=== PATIENT | male | born 1960 | race Two or more races ===

== ENCOUNTER 2024-03-01 13:10 | Emergency (ER) | payer MEDICAID, SELFPAY ==
[2024-03-01 13:18] VITALS: PULSE 88; O2SAT 96
--- NOTE | 2024-03-01 13:18 | XR_ITS ---
Examination: CT brain head without contrast. 2-D sagittal coronal reconstructions Date and time of exam:March 01, 2024 1331 hours INDICATIONS: Malaise and fatigue today CTDI: vol (mGy):50.7 DLP: (mGycm):1105 Technique: Multiple CT axial sections of the brain have been obtained, 5 mm slice thickness. Contrast has not been administered. 2-D sagittal, coronal reconstructions have been obtained Low dose protocols were performed. One or more of the following dose reduction techniques were used; automated exposure control, adjustment of the mA and/or KV according to patient size, use of iterative reconstruction technique. Findings: No significant ventricular enlargement. Prominent right maxillary sinusitis Intra-axial or extra-axial hemorrhage density is not seen. No mass effect or midline shift Basal cisterns are not remarkable. Fourth ventricle is midline. Cranial vault intact. Impression: Negative for acute hemorrhage, mass effect or midline shift
--- NOTE | 2024-03-01 13:18 | XR_ITS ---
Examination: AP chest single view Technique one AP portable upright chest single view Exam date and time: March 01, 2024 1349 hours INDICATIONS: Shortness of breath today. FINDINGS: Mild elevation right hemidiaphragm No significant cardiac enlargement No pneumonia or pulmonary edema Moderate osteopenia IMPRESSION: No pneumonia or pulmonary edema
[2024-03-01 13:21] VITALS: BP 139/74; PULSE 82; RESP 16; TEMP 36.6; O2SAT 98
--- NOTE | 2024-03-01 13:22 | EDNOTE_ITS ---
ED General RME/HPI General Chief complaint: General Adult/Misc Complain Stated complaint: WEAKNESS Time Seen by Provider: 03/01/24 13:16 Arrival date/time: 03/01/24 13:10 RME / HPI RME / HPI narrative: This section includes all my notes and documentations, including HPI, PE, MDM, Procedure Notes, and PLAN. Carlos Alberto Wray MD HPI: 63 year old male with history of schizophrenia presents to the ED [facility] from [facility] for evaluation of generalized weakness beginning 3 days ago. Per medics, on scene patients vital signs were stable, 144/76, HR 80's, saturating 96% on room air, and prehospital BS 118. Medics report the patient was able to walk to [facility] without difficulty or assistance. No headache or dizziness. No speech or visual impairment. No loss of power in the arms or legs. No chest pain or shortness of breath. No fever or chills. No other complaints reported. ROS: Respiratory: negative except as documented in HPI. Gastrointestinal: negative except as documented in HPI. Genitourinary: negative except as documented in HPI. Musculoskeletal: negative except as documented in HPI. Skin: negative except as documented in HPI. Neurological: negative except as documented in HPI. Physical Exam: General: Alert and oriented. No acute distress. Eyes: Conjunctivae and lids clear. EOMI. PERRL. ENT: No nasal congestion. Pharynx normal. Tympanic membrane normal bilaterally. Neck: Supple. No carotid bruit. No JVD. Heart: RRR. Lungs: No respiratory distress. Good air movement. No rhonchi, wheezing, rales. Abdomen: Soft and nontender. Normal bowel sounds. No distension. No rebound or guarding. Back: No CVA tenderness. Legs: No clubbing, cyanosis, edema. Skin: Warm and dry. Neuro: Alert and oriented X 3. Cranial Nerves II-XII grossly intact. No peripheral motor deficits. Musculoskeletal: All major joints and bones are not tender with no limited ROM. I reviewed EMS notes. I reviewed all diagnostic test results. My interpretation of the EKG is sinus rhythm with nonspecific ST-T changes. My interpretation of the chest x-ray is no acute findings. My review of the head CT report is no acute findings. Blood tests and urine tests remarkable for TSH 6.74. At this point, diagnoses include hypothyroidism. Prescribed Synthroid and recommended more outpatient workup. Discharge instructions from Dr. Wray: 1. After extensive evaluation, there is no life-threatening condition.? Such as stroke or heart attack or pneumothorax (collapsed lung). 2. Your thyroid gland isn't working well and this explains your generalized weakness. 3. Take Synthroid as prescribed and this will increase your energy level. 4. See a private doctor on 03/03/2024. Ask to review all test results and official radiology reports, to make sure you receive all necessary follow-ups and monitoring. To make sure there is no serious underlying heart condition, ask to help you get more tests for your heart that cannot be done here in the ER.? Such as Holter Monitor (cardiac monitoring at home from a day to even a month), heart stress test (on treadmill or with medication), echocardiogram (imaging of your heart structures), heart catherization (checking for blockages in your heart arteries), and a referral to see a Portainer Operator. 5. Seek immediate medical care with worsening or with any concerns.?? Based on my best medical judgment, made decision no further evaluation or treatment indicated at this time. Patient understands and agrees to the discharge instructions customized and printed, see below. Carlos Alberto Wray MD Related Data Home Medications ?Medication ?Instructions ?Recorded ?Confirmed benztropine 1 mg tablet 1 mg PO BID 01/14/19 11/30/21 divalproex 500 mg tablet,extended 1,000 mg PO QDAY 01/14/19 12/05/21 release 24 hr lithium carbonate 300 mg capsule 300 mg PO QAM 01/14/19 11/30/21 lithium carbonate 300 mg capsule 600 mg PO HS 01/14/19 11/30/21 risperidone 4 mg tablet 8 mg PO HS 01/14/19 11/30/21 propranolol 60 mg capsule,24 40 mg PO QDAY 11/30/21 11/30/21 hr,extended release cholecalciferol (vitamin D3) 50 1 cap PO QDAY 12/05/21 12/05/21 mcg (2,000 unit) capsule metformin 500 mg tablet 1 tab PO QID 12/05/21 12/05/21 olanzapine 15 mg tablet 1 tab PO QDAY 12/05/21 12/05/21 Previous Rx's ?Medication ?Instructions ?Recorded benztropine 1 mg tablet 1 mg PO BID #60 tabs 12/05/21 divalproex 500 mg tablet,delayed 500 mg PO BID #60 tabs 12/05/21 release lithium carbonate 300 mg capsule 300 mg PO QAM #30 caps 12/05/21 lithium carbonate 300 mg tablet 600 mg (2 x 300 mg) PO .QHS #60 12/05/21 tabs olanzapine 20 mg tablet 20 mg PO .QHS #30 tabs 12/05/21 propranolol 40 mg tablet 40 mg PO QAM #30 tabs 12/05/21 risperidone 4 mg tablet 8 mg (2 x 4 mg) PO .QHS #60 tabs 12/05/21 levothyroxine 50 mcg tablet 50 mcg PO QDAY #30 tabs 03/01/24 (Synthroid) Allergies Allergy/AdvReac Type Severity Reaction Status Date / Time No Known Allergies Allergy Verified 01/14/19 10:32 Review of Systems Review of Systems Systems Reviewed: All systems reviewed, normal except as documented Past Medical History Past Medical History CARDIAC: Positive Hypertension; Negative Congestive Heart Failure RESPIRATORY: Negative Chronic Obstructive Pulmonary Disease (COPD) GENITOURINARY: Negative Renal Disease ENDOCRINE: Positive Diabetes Mellitus Type 2; Negative Diabetes Mellitus Type 1 PSYCHO/SOCIAL: Positive Schizophrenia Social History SMOKING STATUS: Never smoker ED Exam Narrative Physical exam: As noted in HPI Course Quality Measures none Orders Category Date Time Status Bedside COVID-19 Antigen Test NOW Care 03/01/24 13:18 Completed Bedside Influenza A&B Antigen Test NOW Care 03/01/24 13:18 Completed Saline [Insert IV] NOW Care 03/01/24 13:18 Completed Straight [In and Out Catheter] X1 Care 03/01/24 13:[address] head/brain wo con Stat Exams 03/01/24 13:18 Completed XR chest 1V portable Stat Exams 03/01/24 13:18 Completed BNP [B-Type Natriuretic Peptide] Stat Lab 03/01/24 13:43 Completed CBC Stat Lab 03/01/24 13:43 Completed CMP [Comprehensive Metabolic Panel] Stat Lab 03/01/24 13:43 Completed Magnesium Stat Lab 03/01/24 13:43 Completed TSH [Thyroid Stimulating Hormone] Stat Lab 03/01/24 13:43 Completed Troponin I Stat Lab 03/01/24 13:43 Completed UA [Urinalysis] Stat Lab 03/01/24 16:24 Completed Reevaluation(s) Reevaluation #1: Patient remains clinically stable throughout the emergency department visit. We reviewed all the results, analysis, and treatment plans. Patient is amenable to discharge. Strict return precautions were outlined. Patient was discharged in stable condition. Time: 16:00 Vital Signs Vital signs: Vital Signs Temperature 97.8 F 03/01/24 13:21 Pulse Rate 82 03/01/24 13:21 Respiratory Rate 16 03/01/24 13:21 Blood Pressure 139/74 H 03/01/24 13:21 Pulse Oximetry (%) 98 03/01/24 13:21 Oxygen Delivery Method Room Air 03/01/24 13:21 Pulse ox is 98% on room air which is adequate. [facility] Patient data External records reviewed:: [facility] previous records (I reviewed ED visit on 12/21/2023) and EMS form Clinical information provided by:: patient and EMS Social determinants that could affect healthcare access:: housing (Resides at [facility] ) Patient has the following chronic illnesses:: Schizophrenia How is presenting disease/condition affected by chronic disease/condition?: u neffected by Evaluation data The following diagnostics were reviewed and interpreted by me:: lab results and radiology exam(s) Lab and/or radiology exams considered but not ordered:: None Interpretation Summary: Ordering Physician: Carlos Alberto Wray MD Date of Service: 03/01/24 Procedure(s): XR chest 1V portable Accession Number(s): [id number] cc: Carlos Alberto Wray MD; Hamzah Dyson MD~ Examination: AP chest single view Technique one AP portable upright chest single view Exam date and time: March 01, 2024 1349 hours INDICATIONS: Shortness of breath today. FINDINGS: Mild elevation right hemidiaphragm No significant cardiac enlargement No pneumonia or pulmonary edema Moderate osteopenia IMPRESSION: No pneumonia or pulmonary edema Dictated By: Hamzah Dyson MD Signed By: <Electronically signed by Hamzah Dyson MD in OV> 03/01/24 1512 = Ordering Physician: Carlos Alberto Wray MD Date of Service: 03/01/24 Procedure(s): CT head/brain wo con Accession Number(s): [id number] cc: Carlos Alberto Wray MD; Hamzah Dyson MD~ Examination: CT brain head without contrast. 2-D sagittal coronal reconstructions Date and time of exam:March 01, 2024 1331 hours INDICATIONS: Malaise and fatigue today CTDI: vol (mGy):50.7 DLP: (mGycm):1105 Technique: Multiple CT axial sections of the brain have been obtained, 5 mm slice thickness. Contrast has not been administered. 2-D sagittal, coronal reconstructions have been obtained Low dose protocols were performed. One or more of the following dose reduction techniques were used; automated exposure control, adjustment of the mA and/or KV according to patient size, use of iterative reconstruction technique. Findings: No significant ventricular enlargement. Prominent right maxillary sinusitis Intra-axial or extra-axial hemorrhage density is not seen. No mass effect or midline shift Basal cisterns are not remarkable. Fourth ventricle is midline. Cranial vault intact. Impression: Negative for acute hemorrhage, mass effect or midline shift Dictated By: Hamzah Dyson MD Signed By: <Electronically signed by Hamzah Dyson MD in OV> 03/01/24 1437 Medications Medications considered but not ordered:: None Medication administrations:: None Consultations Consultation(s) initiated? (list below): No Diagnosis Differential Diagnosis ED Complaint MDM: Electrolyte imbalance, viral illness, dehydration, UTI Most likely diagnosis given after review of the tests above:: Hypothyroidism Admission Indicated Admission indicated?: not indicated Explain why admission is indicated or not indicated:: Does not meet admission criteria Admission Request Was there a request for admission?: No Disposition Plan Disposition Plan: Discharge Discharge Attestation Discharge Attestation: The patient and all family members were given an opportunity to ask questions and understood the discharge instructions. Discharge instructions specifically effects, indications for sooner follow up or return to the emergency department, and the expected course of current diagnosis. Patient condition: Stable Medical Decision Making Differential Diagnosis Differential Diagnosis: Electrolyte imbalance, viral illness, dehydration, UTI Lab Data 03/01/24 13:43 03/01/24 13:43 Labs: Lab Results 03/01/24 03/01/24 Range/Units 13:43 16:24 WBC 8.4 (3.8-10.6) Thou/mm3 RBC 3.73 L (4.50-5.90) Miln/mm3 Hgb 12.0 L (13.5-16.0) g/dL Hct 34.4 L (41.0-53.0) % MCV 92 (80-100) fL MCH 32.2 (25.0-35.0) pg MCHC 34.9 (31.0-37.0) g/dl RDW Std Deviation 47.6 H (35.1-43.9) fL Plt Count 191 (140-440) Thou/mm3 Neut % (Auto) 72 (37-80) % Lymph % (Auto) 16 (10-50) % Bledsoe % (Auto) 8 (0-12) % Eos % (Auto) 4 (0-10) % Baso % (Auto) 0 (0-2.5) % Neut # (Auto) 6.0 (1.8-7.7) Thou/mm3 Lymph # (Auto) 1.4 (1.0-4.8) Thou/mm3 Bledsoe # (Auto) 0.6 (0.0-0.8) Thou/mm3 Eos # (Auto) 0.4 (0.0-0.5) Thou/mm3 Baso # (Auto) 0.0 (0.0-0.2) Thou/mm3 Immature Gran # (Auto) 0.02 H (0.00-0.00) Thou/mm3 Absolute Nucleated RBC 0.00 (0.00-0.00) Thou/mm3 Immature Gran % 0 (0-0) % Nucleated RBC % 0 (0) /100 WBC Sodium 137 (136-145) mMol/L Potassium 4.1 (3.4-5.1) mMol/L Chloride 105 (98-107) mMol/L Carbon Dioxide 23.9 (20.0-31.0) mMol/L Anion Gap 8 (7-16) BUN 13 (9-23) mg/dL Creatinine 1.3 (0.6-1.3) mg/dL Estim Creat Clear Calc Not Performed. eGFR > 60 (60 - ) See Note BUN/Creatinine Ratio 10 L (12-20) Ratio Glucose 96 (74-106) mg/dL Calculated Osmolality 273 L (275-295) Calcium 9.6 (8.3-10.6) mg/dL Corrected Calcium 9.6 (8.5-10.1) mg/dL Magnesium 1.8 (1.6-2.6) mg/dL Total Bilirubin 0.4 (0.3-1.2) mg/dL AST 10 (0-34) U/L ALT 10 (10-49) U/L Alkaline Phosphatase 91 (46-116) U/L Troponin I < 0.002 (0.0-0.045) ng/mL B-Natriuretic Peptide < 20 (0-100) pg/mL Total Protein 6.7 (5.7-8.2) gm/dL Albumin 4.2 (3.4-4.8) gm/dL Globulin 2.5 (2.3-3.5) gm/dL Albumin/Globulin Ratio 1.7 (1.2-2.2) TSH 6.74 H (0.55-4.78) uIU/mL Ur Collection Type Clean Catch Urine Color Lt-Yellow (Lt Yel-Yel) Urine Clarity Clear (Clear/Hazy) Urine pH 6.5 (5.0-7.0) Ur Specific Spruce 1.021 (1.001-1.035) Urine Protein Negative (Neg - Trace) Urine Glucose (UA) 4+ A (Negative) Urine Ketones Trace (Negative) Urine Blood Negative (Negative) Urine Nitrite Negative (Negative) Urine Bilirubin Negative (Negative) Urine Urobilinogen (Auto) Negative (0.0-1.0) mg/dL Ur Leukocyte Esterase Negative (Negative) Urine RBC 1 (0-3) /hpf Urine WBC 1 (0-5) /hpf Ur Squamous Epith Cells < 1 (0-5) /hpf Urine Bacteria None (None) Discharge Plan Plan Patient Disposition: HOME (Self Care) Prescriptions/Referrals Prescriptions/Med Rec: New levothyroxine [Synthroid] 50 mcg tablet 50 mcg PO QDAY Qty: 30 0RF No Action risperidone 4 mg tablet 8 mg PO HS lithium carbonate 300 mg Capsule 300 mg PO QAM lithium carbonate 300 mg Capsule 600 mg PO HS divalproex 500 mg tablet extended release 24 hr 1,000 mg PO QDAY benztropine 1 mg tablet 1 mg PO BID Patient Comments: take 1 tablet by mouth twice a day propranolol 60 mg capsule,extended release 24 hr 40 mg PO QDAY metformin 500 mg tablet 1 tab PO QID olanzapine 15 mg tablet 1 tab PO QDAY cholecalciferol (vitamin D3) 50 mcg (2,000 unit) capsule 1 cap PO QDAY Patient Comments: take 1 capsule by mouth once daily lithium carbonate 300 mg capsule 300 mg PO QAM Qty: 30 0RF lithium carbonate 300 mg tablet 600 mg PO .QHS Qty: 60 0RF risperidone 4 mg tablet 8 mg PO .QHS Qty: 60 0RF divalproex 500 mg tablet,delayed release (DR/EC) 500 mg PO BID Qty: 60 0RF benztropine 1 mg tablet 1 mg PO BID Qty: 60 0RF propranolol 40 mg tablet 40 mg PO QAM Qty: 30 0RF olanzapine 20 mg tablet 20 mg PO .QHS Qty: 30 0RF Referrals: Wil Seals MD [Primary Care Provider] - In 1 week Problem List Clinical Impression: Hypothyroidism Patient/Caregiver Discharge Instructions Discharge Activity: activity as tolerated Education Materials: ED Hypothyroidism Additional Instructions: Discharge instructions from Dr. Wray: 1. After extensive evaluation, there is no life-threatening condition.? Such as stroke or heart attack or pneumothorax (collapsed lung). 2. Your thyroid gland isn't working well and this explains your generalized weakness. 3. Take Synthroid as prescribed and this will increase your energy level. 4. See a private doctor on 03/03/2024. Ask to review all test results and official radiology reports, to make sure you receive all necessary follow-ups and monitoring. To make sure there is no serious underlying heart condition, ask to help you get more tests for your heart that cannot be done here in the ER.? Such as Holter Monitor (cardiac monitoring at home from a day to even a month), heart stress test (on treadmill or with medication), echocardiogram (imaging of your heart structures), heart catherization (checking for blockages in your heart arteries), and a referral to see a Portainer Operator. 5. Seek immediate medical care with worsening or with any concerns.?? Print Language: Uzbek Stand Alone Forms: Cyndy Award Info., Patient Portal Info Letter
[2024-03-01 14:17] LABS: Basophils % (Auto) 0 % (0-2.5); Eosinophils # (Auto) 0.4 Thou/mm3 (0.0-0.5); Eosinophils % (Auto) 4 % (0-10); Hematocrit 34.4 % (41.0-53.0); Immature Granulocytes % (Auto) 0 % (0-0); Immature Granulocytes Auto 0.02 Thou/mm3 (0.00-0.00); Lymphocytes # (Auto) 1.4 Thou/mm3 (1.0-4.8); Lymphocytes % (Auto) 16 % (10-50); Mean Corpuscular HGB Conc 34.9 g/dl (31.0-37.0); Mean Corpuscular Hemoglobin 32.2 pg (25.0-35.0); Mean Corpuscular Volume 92 fL (80-100); Monocytes # (Auto) 0.6 Thou/mm3 (0.0-0.8); Monocytes % (Auto) 8 % (0-12); Neutrophils % (Auto) 72 % (37-80); Nucleated Red Blood Cell % 0 /100 WBC (0); Platelet Count 191 Thou/mm3 (140-440); RDW Standard Deviation 47.6 fL (35.1-43.9); Red Blood Count 3.73 Miln/mm3 (4.50-5.90); White Blood Count 8.4 Thou/mm3 (3.8-10.6)
[2024-03-01 14:53] LABS: B-Type Natriuretic Peptide < 20 pg/mL (0-100)
[2024-03-01 15:00] LABS: Alanine Aminotransferase 10 U/L (10-49); Albumin, Serum 4.2 gm/dL (3.4-4.8); Albumin/Globulin Ratio 1.7 (1.2-2.2); Alkaline Phosphatase 91 U/L (46-116); Anion Gap 8 (7-16); Aspartate Amino Transferase 10 U/L (0-34); BUN/Creatinine Ratio 10 Ratio (12-20); Bilirubin,Total 0.4 mg/dL (0.3-1.2); Blood Urea Nitrogen 13 mg/dL (9-23); Calcium 9.6 mg/dL (8.3-10.6); Calcium (Corrected) 9.6 mg/dL (8.5-10.1); Carbon Dioxide 23.9 mMol/L (20.0-31.0); Chloride 105 mMol/L (98-107); Creatinine (Component) 1.3 mg/dL (0.6-1.3); Globulin 2.5 gm/dL (2.3-3.5); Glucose 96 mg/dL (74-106); Magnesium 1.8 mg/dL (1.6-2.6); Osmolality,Calculated 273 (275-295); Potassium 4.1 mMol/L (3.4-5.1); Sodium 137 mMol/L (136-145); Thyroid Stimulating Hormone 6.74 uIU/mL (0.55-4.78); Total Protein 6.7 gm/dL (5.7-8.2); Troponin I < 0.002 ng/mL (0.0-0.045); eGFR > 60 See Note
[2024-03-01 16:23] VITALS: BP 113/72; PULSE 69; RESP 20; TEMP 36.6; O2SAT 97
[2024-03-01 16:38] LABS: Collection Type, Urine Clean Catch
[2024-03-01 16:59] LABS: Bilirubin,Urine Negative (Negative); Blood,Urine Negative (Negative); Clarity,Urine Clear (Clear/Hazy); Color,Urine Lt-Yellow (Lt Yel-Yel); Glucose, Urine 4+ (Negative); Ketones,Urine Trace (Negative); Leukocyte Esterase,Urine Negative (Negative); Nitrite,Urine Negative (Negative); PH,Urine 6.5 (5.0-7.0); Protein,Urine Negative (Neg - Trace); RBC,Urine 1 /hpf (0-3); Specific Gravity,Urine 1.021 (1.001-1.035); Squamous Epithelial Cell,Urine < 1 /hpf (0-5); Urobilinogen,Urine Negative mg/dL (0.0-1.0); WBC,Urine 1 /hpf (0-5)
[2024-03-01 17:14] VITALS: BMI 24.3
[2024-03-01 18:00] VITALS: BP 118/69; PULSE 73; RESP 16; TEMP 37; O2SAT 97
--- NOTE | 2024-03-01 18:24 | PC.CC ---
[employer] engaged to arrange transport for pt back to independent living facility at [address] transport arranged for pt.
--- NOTE | 2024-03-01 18:30 | PC.ADMIT ---
Report given to Kiara at [facility], patient placed in [employer] and Kiara to be waiting for him.
== END 2024-03-01 18:33 | disposition home or self-care (01) ==
PROVIDERS: Emergency Provider Emergency Medicine; PCP Family Medicine
DX: E03.9 Hypothyroidism, unspecified (principal); F20.9 Schizophrenia, unspecified
CPT/HCPCS: 36415; 70450; 71045; 80053; 81001; 83735; 83880; 84443; 84484; 85025; 87400; 87811; 99284

== ENCOUNTER 2024-03-10 17:02 | Emergency (ER) | payer MEDICAID, SELFPAY ==
[2024-03-10 17:05] VITALS: BP 110/71; PULSE 58; RESP 19; TEMP 36.9; O2SAT 94
[2024-03-10 17:09] VITALS: PULSE 66; RESP 16; O2SAT 98; BMI 24.3
[2024-03-10 17:42] VITALS: BP 102/60; PULSE 57; RESP 19; TEMP 36.9; O2SAT 100
--- NOTE | 2024-03-10 18:17 | EDNOTE_ITS ---
ED Recheck Abnl Lab Rx-RME/HPI General Chief Complaint: Recheck/Abnormal Lab/Rx Stated Complaint: LOW BLOOD PRESSURE Time Seen by Provider: 03/10/24 17:39 Arrival date/time: 03/10/24 17:02 Limitations: no limitations RME / HPI RME / HPI narrative: Dr. Miller's Main ED Evaluation: 63yo male with a history of schizophrenia, DM, HTN BIBA from [facility] presents to the ED for a chief complaint of low blood pressure. Per EMS, patient's blood pressure en route was 110/54. Patient does not have any medical complaints at this time. He denies any headache, neck pain, chest pain, abdominal pain or any other associated symptoms. No known allergies. Related Data Home Medications ?Medication ?Instructions ?Recorded ?Confirmed benztropine 1 mg tablet 1 mg PO BID 01/14/19 11/30/21 divalproex 500 mg tablet,extended 1,000 mg PO QDAY 01/14/19 12/05/21 release 24 hr lithium carbonate 300 mg capsule 300 mg PO QAM 01/14/19 11/30/21 lithium carbonate 300 mg capsule 600 mg PO HS 01/14/19 11/30/21 risperidone 4 mg tablet 8 mg PO HS 01/14/19 11/30/21 propranolol 60 mg capsule,24 40 mg PO QDAY 11/30/21 11/30/21 hr,extended release cholecalciferol (vitamin D3) 50 1 cap PO QDAY 12/05/21 12/05/21 mcg (2,000 unit) capsule metformin 500 mg tablet 1 tab PO QID 12/05/21 12/05/21 olanzapine 15 mg tablet 1 tab PO QDAY 12/05/21 12/05/21 Previous Rx's ?Medication ?Instructions ?Recorded benztropine 1 mg tablet 1 mg PO BID #60 tabs 12/05/21 divalproex 500 mg tablet,delayed 500 mg PO BID #60 tabs 12/05/21 release lithium carbonate 300 mg capsule 300 mg PO QAM #30 caps 12/05/21 lithium carbonate 300 mg tablet 600 mg (2 x 300 mg) PO .QHS #60 12/05/21 tabs olanzapine 20 mg tablet 20 mg PO .QHS #30 tabs 12/05/21 propranolol 40 mg tablet 40 mg PO QAM #30 tabs 12/05/21 risperidone 4 mg tablet 8 mg (2 x 4 mg) PO .QHS #60 tabs 12/05/21 levothyroxine 50 mcg tablet 50 mcg PO QDAY #30 tabs 03/01/24 (Synthroid) cephalexin 500 mg capsule 500 mg PO TID #21 caps 03/11/24 Allergies Allergy/AdvReac Type Severity Reaction Status Date / Time No Known Allergies Allergy Verified 01/14/19 10:32 Review of Systems Review of Systems Systems Reviewed: All systems reviewed, normal except as documented Past Medical History Past Medical History CARDIAC: Positive Hypertension; Negative Congestive Heart Failure RESPIRATORY: Negative Chronic Obstructive Pulmonary Disease (COPD) GENITOURINARY: Negative Renal Disease ENDOCRINE: Positive Diabetes Mellitus Type 2; Negative Diabetes Mellitus Type 1 PSYCHO/SOCIAL: Positive Schizophrenia Social History SMOKING STATUS: Current some day smoker ED Exam General Limitations: Present no limitations General appearance: Present alert, in no apparent distress and other (is very low spoken; poor eye contact) Head Head exam: Present atraumatic Eye Eye exam: Present normal appearance, PERRL and EOMI ENT ENT exam: Present normal exam, normal oropharynx and mucous membranes moist Neck Neck exam: Present normal inspection, full ROM and trachea midline Chest Chest inspection: Present normal inspection and symmetric chest wall rise Respiratory Respiratory exam: Present normal lung sounds bilaterally Cardiovascular Cardiovascular exam: Present regular rate, normal rhythm and normal heart sounds Abdominal Exam Abdominal exam: Present soft and normal bowel sounds Extremities Exam Extremities exam: Present normal inspection and full ROM Back Exam Back exam: Present normal inspection and full ROM Neurological Exam Neurological exam: Present alert, oriented X3, CN II-XII intact and other (no slurred speech) Psychiatric Psychiatric exam: Present normal mood and flat affect Skin Skin exam: Present warm, dry, intact and pallor Course Course Course Narrative: 0320: Patient is no longer pale and is resting comfortably at this time. Quality Measures none Orders Category Date Time Status In and Out Catheter X1 Care 03/11/24 03:39 Completed Obtain Written Consent For: NOW Care 03/10/24 19:17 Completed BNP [B-Type Natriuretic Peptide] Stat Lab 03/10/24 20:10 Completed CBC Stat Lab 03/10/24 20:10 Completed CMP [Comprehensive Metabolic Panel] Stat Lab 03/10/24 20:10 Completed Drug Screen,Urine Stat Lab 03/11/24 03:30 Completed Iron Panel Stat Lab 03/10/24 20:10 Completed Red Blood Cells Stat Lab 03/10/24 20:10 Results TSH [Thyroid Stimulating Hormone] Stat Lab 03/10/24 20:10 Completed Troponin I Stat Lab 03/10/24 20:10 Completed Type and Screen Stat Lab 03/10/24 20:10 Results Urinalysis, C/S if Indicated Stat Lab 03/11/24 03:30 Completed Urine Culture Stat Lab 03/11/24 03:30 Received Sodium Chloride 0.9% 1000 ml [Ns] 1,000 ml Med 03/10/24 19:06 Discontinued IV 999 mls/hr cephALEXin [Keflex] Med 03/11/24 04:43 Discontinued 500 mg PO X1 ONE Vital Signs Vital signs: Vital Signs Temperature 98.4 F 03/10/24 17:05 Pulse Rate 58 L 03/10/24 17:05 Respiratory Rate 19 03/10/24 17:05 Blood Pressure 110/71 03/10/24 17:05 Pulse Oximetry (%) 94 L 03/10/24 17:05 Oxygen Delivery Method Room Air 03/10/24 17:05 Pulse ox is 94% on room air, which is normal according to my interpretation. Recheck / Abnormal Lab / Rx Patient data External records reviewed:: [facility] [place] (Per chart review, patient was seen here on 03/01/24 for hypothyroidism.) Clinical information provided by:: patient Social determinants that could affect healthcare access:: none Patient has the following chronic illnesses:: schizophrenia, DM, HTN How is presenting disease/condition affected by chronic disease/condition?: uneffected by Evaluation data The following diagnostics were reviewed and interpreted by me:: lab results Lab and/or radiology exams considered but not ordered:: none Interpretation Summary: CBC is normal, CMP is normal, Troponin is normal, BNP is normal, UA is unremarkable, UDS is negative, according to my interpretation. Medications / Prescriptions Medications or Prescriptions considered but not ordered:: none Medication administrations:: Medication Administration History Discontinued Medications Cephalexin HCl (Cephalexin 250 Mg Capsule) 500 mg PO X1 ONE Stop: 03/11/24 04:44 Last Admin: 03/11/24 05:06 Dose: 500 mg Documented By: GRACIE Sodium Chloride (Ns) 1,000 mls @ 999 mls/hr IV .Q1H1M ONE Stop: 03/10/24 20:06 Last Infusion: 03/10/24 20:57 Dose: Infused Documented By: Admin: 03/10/24 20:44 Dose: 999 mls/hr Documented By: ASTER see above Consultations Consultation(s) initiated? (list below): No Diagnosis Recheck Differential Diagnosis: other (anemia, side effect from schizoeffective medication, dehydration, electrolyte abnormality, stroke, depression, UTI) Most likely diagnosis given after review of the tests above:: see below Admission Indicated Admission indicated?: not indicated Admission Request Was there a request for admission?: No Disposition Plan Disposition Plan: Discharge Discharge Attestation Discharge Attestation: The patient and all family members were given an opportunity to ask questions and understood the discharge instructions. Discharge instructions specifically effects, indications for sooner follow up or return to the emergency department, and the expected course of current diagnosis. Patient condition: Stable Discharge Plan Plan Patient Disposition: HOME (Self Care) Patient condition on transfer: Stable Prescriptions/Referrals Prescriptions/Med Rec: New cephalexin 500 mg capsule 500 mg PO TID Qty: 21 0RF No Action risperidone 4 mg tablet 8 mg PO HS lithium carbonate 300 mg Capsule 300 mg PO QAM lithium carbonate 300 mg Capsule 600 mg PO HS divalproex 500 mg tablet extended release 24 hr 1,000 mg PO QDAY benztropine 1 mg tablet 1 mg PO BID Patient Comments: take 1 tablet by mouth twice a day propranolol 60 mg capsule,extended release 24 hr 40 mg PO QDAY metformin 500 mg tablet 1 tab PO QID olanzapine 15 mg tablet 1 tab PO QDAY cholecalciferol (vitamin D3) 50 mcg (2,000 unit) capsule 1 cap PO QDAY Patient Comments: take 1 capsule by mouth once daily lithium carbonate 300 mg capsule 300 mg PO QAM Qty: 30 0RF lithium carbonate 300 mg tablet 600 mg PO .QHS Qty: 60 0RF risperidone 4 mg tablet 8 mg PO .QHS Qty: 60 0RF divalproex 500 mg tablet,delayed release (DR/EC) 500 mg PO BID Qty: 60 0RF benztropine 1 mg tablet 1 mg PO BID Qty: 60 0RF propranolol 40 mg tablet 40 mg PO QAM Qty: 30 0RF olanzapine 20 mg tablet 20 mg PO .QHS Qty: 30 0RF levothyroxine [Synthroid] 50 mcg tablet 50 mcg PO QDAY Qty: 30 0RF Referrals: No Primary/Family,Physician [Primary Care Provider] - In 1 week Problem List Clinical Impression: Acute UTI Patient/Caregiver Discharge Instructions Education Materials: ED Bladder Infection, Male (Adult) Additional Instructions: take the antibiotics as prescribed. you will need to follow-up with your primary care physician in the next 48 to 72 hours to get results of the urine culture. Return to emergency department for any worsening symptoms, or any other concerns. Print Language: Chinese Stand Alone Forms: Cyndy Award Info., Patient Portal Info Letter
[2024-03-10 19:59] VITALS: BP 111/65; PULSE 66; RESP 19; TEMP 36.6; O2SAT 100
[2024-03-10 20:19] LABS: Basophils % (Auto) 0 % (0-2.5); Eosinophils # (Auto) 0.2 Thou/mm3 (0.0-0.5); Eosinophils % (Auto) 3 % (0-10); Hematocrit 31.8 % (41.0-53.0); Hemoglobin 10.9 g/dL (13.5-16.0); Immature Granulocytes % (Auto) 0 % (0-0); Immature Granulocytes Auto 0.03 Thou/mm3 (0.00-0.00); Lymphocytes # (Auto) 0.9 Thou/mm3 (1.0-4.8); Lymphocytes % (Auto) 11 % (10-50); Mean Corpuscular HGB Conc 34.3 g/dl (31.0-37.0); Mean Corpuscular Hemoglobin 32.2 pg (25.0-35.0); Mean Corpuscular Volume 94 fL (80-100); Monocytes # (Auto) 0.6 Thou/mm3 (0.0-0.8); Monocytes % (Auto) 7 % (0-12); Neutrophils # (Auto) 6.7 Thou/mm3 (1.8-7.7); Neutrophils % (Auto) 80 % (37-80); Nucleated Red Blood Cell % 0 /100 WBC (0); Platelet Count 181 Thou/mm3 (140-440); RDW Standard Deviation 48.2 fL (35.1-43.9); Red Blood Count 3.39 Miln/mm3 (4.50-5.90); White Blood Count 8.4 Thou/mm3 (3.8-10.6)
[2024-03-10 20:33] LABS: B-Type Natriuretic Peptide 22 pg/mL (0-100)
[2024-03-10] MEDS: SODIUM CHLORIDE 0.9% 1000 ML 1,000 ML 999 ML IV (20:44)
[2024-03-10 20:47] LABS: Alanine Aminotransferase 8 U/L (10-49); Albumin/Globulin Ratio 1.6 (1.2-2.2); Alkaline Phosphatase 91 U/L (46-116); Anion Gap 8 (7-16); Aspartate Amino Transferase < 8 U/L (0-34); BUN/Creatinine Ratio 18 Ratio (12-20); Bilirubin,Total 0.4 mg/dL (0.3-1.2); Blood Urea Nitrogen 24 mg/dL (9-23); Carbon Dioxide 23.5 mMol/L (20.0-31.0); Chloride 106 mMol/L (98-107); Creatinine (Component) 1.3 mg/dL (0.6-1.3); Globulin 2.5 gm/dL (2.3-3.5); Glucose 90 mg/dL (74-106); Osmolality,Calculated 277 (275-295); Potassium 4.3 mMol/L (3.4-5.1); Sodium 137 mMol/L (136-145); Thyroid Stimulating Hormone 4.89 uIU/mL (0.55-4.78); Total Protein 6.5 gm/dL (5.7-8.2); Troponin I < 0.002 ng/mL (0.0-0.045); eGFR > 60 See Note
[2024-03-10 21:36] LABS: Total Iron Binding Capacity 216 mcg/dL (250-425)
[2024-03-10 21:45] LABS: Iron 37 mcg/dL (65-175); Percent Iron Saturation 17 % (20-55); Unsaturated Iron Binding 179 (225-295)
[2024-03-10 22:00] VITALS: BP 110/67; PULSE 60; RESP 18; TEMP 37.2; O2SAT 100
[2024-03-11 00:41] VITALS: BP 112/59; PULSE 65; RESP 18; TEMP 36.8; O2SAT 98
[2024-03-11 02:10] VITALS: BP 95/57; PULSE 66; RESP 17; TEMP 36.6; O2SAT 96
[2024-03-11 03:45] LABS: Collection Type, Urine Voided
[2024-03-11 04:23] LABS: Bilirubin,Urine Negative (Negative); Blood,Urine Negative (Negative); Clarity,Urine Clear (Clear/Hazy); Color,Urine Yellow (Lt Yel-Yel); Glucose, Urine 4+ (Negative); Hyaline Casts,Urine < 1 /hpf (0-1); Ketones,Urine Trace (Negative); Leukocyte Esterase,Urine Positive (Negative); Nitrite,Urine Negative (Negative); PH,Urine 5.5 (5.0-7.0); Protein,Urine Trace (Neg - Trace); RBC,Urine 3 /hpf (0-3); Specific Gravity,Urine 1.022 (1.001-1.035); Squamous Epithelial Cell,Urine < 1 /hpf (0-5); Urobilinogen,Urine Negative mg/dL (0.0-1.0); WBC,Urine 36 /hpf (0-5)
[2024-03-11 04:38] LABS: Culture Indicated,Urine Yes
[2024-03-11 04:46] LABS: Amphetamine/Methamp Scrn,U Negative (Negative); Barbiturate Screen,Urine Negative (Negative); Benzodiazepines Screen,Urine Negative (Negative); Benzoylecgonine Screen, Ur Negative (Negative); Fentanyl Screen,Urine Negative (Negative); Opiate Screen,Urine Negative (Negative); THC Screen,Urine Negative (Negative)
[2024-03-11 04:47] VITALS: BP 95/52; PULSE 56; RESP 18; TEMP 36.9; O2SAT 96
[2024-03-11] MEDS: cephALEXin 250 MG CAPSULE 500 MG PO (05:06)
[2024-03-11 06:16] VITALS: BP 102/59; PULSE 56; RESP 17; TEMP 36.7; O2SAT 96
[2024-03-11 07:07] VITALS: BP 101/67; PULSE 61; RESP 16; TEMP 36.7; O2SAT 97
--- NOTE | 2024-03-11 07:16 | PC.CC ---
Hope MAYES was consulted regarding transportation for patient back home. ASW arranged transportation for the patient back home via [facility].
== END 2024-03-11 07:11 | disposition home or self-care (01) ==
PROVIDERS: Emergency Provider Emergency Medicine
DX: N39.0 Urinary tract infection, site not specified (principal)
CPT/HCPCS: 51701; 36415; 80053; 80307; 81001; 83540; 83550; 83880; 84443; 84484; 85025; 86850; 86900; 86901; 86923; 87086; 99284; J7030; A9270

== ENCOUNTER 2024-03-27 11:57 | Inpatient (IN) | payer MEDICAID, SELFPAY ==
[2024-03-27] VITALS (35 sets, daily range): BP systolic 99–146; BP diastolic 48–82; PULSE 39–84; RESP 9–100; TEMP 36.3–36.7; O2SAT 88–100
--- NOTE | 2024-03-27 12:11 | PC.NURSE ---
TYE FROM [facility] FOR WEAKNESS. PER SNF STAFF PT IS WEAK AND DECLINING TO EAT. PER PT THERE FOOD IS NASTY AND HE DOESN'T WANT TO EAT IT. PT IS [employer] [facility] HAS TREMORS, NO HX NOTED OF [place], PT REPORTS HE ALWAYS SHAKES, DECLINES BEING COLD OR HAVING ANY CHILLS. PT DECLINES ANY PAIN AT THIS TIME WELL. PRIMARY RN AT BEDSIDE ASSESSING PT.
--- NOTE | 2024-03-27 12:24 | PD.EDWEAK ---
ED Weakness RME/HPI General Chief complaint: Weakness Stated complaint: AMS Time Seen by Provider: 03/27/24 12:18 Arrival date/time: 03/27/24 11:57 RME / HPI RME / HPI Narrative: DR. RIVERA MAIN ED EVALUATION: 63 year old male presents to the Emergency Department [facility] with complaint of generalized weakness. Mumbling so limited history, but when asked if he has any pain he completely denies. PMHx: Diabetes, hypertension, and schizophrenia Social Hx: No tobacco, alcohol, or substance use. Related Data Home Medications ?Medication ?Instructions ?Recorded ?Confirmed benztropine 1 mg tablet 1 mg PO BID 01/14/19 11/30/21 divalproex 500 mg tablet,extended 1,000 mg PO QDAY 01/14/19 12/05/21 release 24 hr lithium carbonate 300 mg capsule 300 mg PO QAM 01/14/19 11/30/21 lithium carbonate 300 mg capsule 600 mg PO HS 01/14/19 11/30/21 risperidone 4 mg tablet 8 mg PO HS 01/14/19 11/30/21 propranolol 60 mg capsule,24 40 mg PO QDAY 11/30/21 11/30/21 hr,extended release cholecalciferol (vitamin D3) 50 1 cap PO QDAY 12/05/21 12/05/21 mcg (2,000 unit) capsule metformin 500 mg tablet 1 tab PO QID 12/05/21 12/05/21 olanzapine 15 mg tablet 1 tab PO QDAY 12/05/21 12/05/21 Previous Rx's ?Medication ?Instructions ?Recorded benztropine 1 mg tablet 1 mg PO BID #60 tabs 12/05/21 divalproex 500 mg tablet,delayed 500 mg PO BID #60 tabs 12/05/21 release lithium carbonate 300 mg capsule 300 mg PO QAM #30 caps 12/05/21 lithium carbonate 300 mg tablet 600 mg (2 x 300 mg) PO .QHS #60 12/05/21 tabs olanzapine 20 mg tablet 20 mg PO .QHS #30 tabs 12/05/21 propranolol 40 mg tablet 40 mg PO QAM #30 tabs 12/05/21 risperidone 4 mg tablet 8 mg (2 x 4 mg) PO .QHS #60 tabs 12/05/21 levothyroxine 50 mcg tablet 50 mcg PO QDAY #30 tabs 03/01/24 (Synthroid) cephalexin 500 mg capsule 500 mg PO TID #21 caps 03/11/24 Allergies Allergy/AdvReac Type Severity Reaction Status Date / Time No Known Allergies Allergy Verified 03/27/24 12:10 Review of Systems Review of Systems ROS Unobtainable: unobtainable due to mental status Past Medical History Past Medical History CARDIAC: Positive Hypertension; Negative Congestive Heart Failure RESPIRATORY: Negative Chronic Obstructive Pulmonary Disease (COPD) GENITOURINARY: Negative Renal Disease ENDOCRINE: Positive Diabetes Mellitus Type 2; Negative Diabetes Mellitus Type 1 PSYCHO/SOCIAL: Positive Schizophrenia Social History SMOKING STATUS: Unknown if ever smoked ED Exam Narrative Physical exam: GENERAL APPEARANCE: Well hydrated, well nourished, seems in no acute distress and says no to pain. Limited history, patient mumbles a lot and cannot understand him. VITALS: All vitals were reviewed and the pulse ox is 99% on room air which is normal according to my interpretation. HEENT: Normocephalic, atramatic, EOMI, EACs are patent. There is no bulge or retraction. Throat without erythema or exudate. Moist oromucosa. No jaundice NECK: Supple, no JVD or bruits. CARDIOVASCULAR: Heart regular without S3-S4 or murmur. No rubs or gallops. LUNGS/CHEST: Clear to auscultation bilaterally. No rales, rhonchi, or wheezing. Normal inspection. ABDOMEN: Soft, nontender, with normal bowel sounds. No pulsatile masses. No rebound, rigidity, or guarding. No incarcerated hernia. Normal inspection and palpation. EXTREMITIES: No edema, clubbing, or cyanosis. Intact CSM. Normal inspection and palpation. SKIN: Warm and dry without rashes. Normal inspection. MUSCULOSKELETAL: No gross deformity, full ROM all extremities. Normal inspection. NEURO: Mumbling but no facial droop, no slurred speech. Able to follow commands and moves all extremities. There are no other motor or sensory deficits noted. PSYCHIATRIC: Unobtainable. Course Quality Measures none Orders Category Date Time Status EKG (ED ONLY) *Do not use* NOW Care 03/27/24 12:[address] head/brain wo con Stat Exams 03/27/24 12:32 Completed EKG (ED Only) Stat Exams 03/27/24 12:32 Draft Ammonia Stat Lab 03/27/24 12:53 Completed CBC Stat Lab 03/27/24 12:24 Completed CMP [Comprehensive Metabolic Panel] Stat Lab 03/27/24 12:24 Completed Drug Screen,Urine Stat Lab 03/27/24 12:32 Ordered [place] Stat Lab 03/27/24 12:24 Completed Troponin I Stat Lab 03/27/24 12:24 Completed Sodium Chloride 0.9% 1000 ml [Ns] 1,000 ml Med 03/27/24 12:32 Active IV 250 mls/hr Vital Signs Vital signs: Vital Signs Pulse Rate 65 03/27/24 12:17 Respiratory Rate 16 03/27/24 12:17 Blood Pressure 110/60 03/27/24 12:17 Pulse Oximetry (%) 97 03/27/24 12:17 Oxygen Delivery Method Room Air 03/27/24 12:17 Weakness MDM Narrative MDM Narrative:: I, Casandra Christensen, am scribing for and in the presence of Dr. Rivera. CBC unremarkable. CMP negative. [place] level is 2 point 07 which is toxic. Troponin negative. Ammonia negative. CT head was reviewed by and interpreted by me as follow. No bleed. No mass. No shift. No swelling. Normal ventricle. Normal bones. U tox is still pending at this time 2:23 PM, I spoke to and discussed with , resident of Dr. Varner, hospitalist on-call. He agrees to assess the patient for admission. Critical care time is approximately 35 minutes excluding any procedure. The high probability of sudden, clinically significant deterioration in the patient?s condition required the highest level of my preparedness to intervene urgently. The services I provided to this patient were to treat and/or prevent clinically significant deterioration. Services included the following: chart data review, reviewing nursing notes and/or old charts, documentation time, sap payroll consultant collaboration regarding findings and treatment options, medication orders and management, direct patient care, vital sign assessments and ordering, interpreting and reviewing diagnostic studies and lab tests. Aggregate critical care time includes only time during which I was engaged in work directly related to the patient?s care, as described above, whether at bedside or elsewhere in the Emergency Department. It did not include time spent performing other reported procedures or the services of residents, students, nurses or physician assistants. Patient data External records reviewed:: [facility] previous records (Reviewed last ED visit dated 03/11/24, discharged with the following: Acute UTI.) and EMS form Clinical information provided by:: patient and EMS Social determinants that could affect healthcare access:: none Patient has the following chronic illnesses:: Diabetes, hypertension, and schizophrenia How is presenting disease/condition affected by chronic disease/condition?: exacerbated by Evaluation data The following diagnostics were reviewed and interpreted by me:: lab results, radiology exam(s) and EKG tracing(s) Lab and/or radiology exams considered but not ordered:: none Interpretation Summary: See above under MDM narrative. RADIOLOGY Procedure(s): CT head/brain wo con Accession Number(s): [id number] cc: Hamzah Dyson MD; Jordi Rivera MD~ Examination: CT brain head without contrast. 2-D sagittal coronal reconstructions Date and time of exam:March 27, 2024 1244 hrs. Indications: Onset altered mental status today CTDI: vol (mGy):52.3 DLP: (mGycm):1137 Technique: Multiple CT axial sections of the brain have been obtained, 5 mm slice thickness. Contrast has not been administered. 2-D sagittal, coronal reconstructions have been obtained Low dose protocols were performed. One or more of the following dose reduction techniques were used; automated exposure control, adjustment of the mA and/or KV according to patient size, use of iterative reconstruction technique. Findings: No significant ventricular enlargement. 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 No mass effect or midline shift Basal cisterns are not remarkable. Fourth ventricle is midline. Cranial vault intact. Impression: Negative for acute hemorrhage, mass effect or midline shift Advise clinical correlation and follow-up accordingly Dictated By: Hamzah Dyson MD Medications / Prescriptions Medications or Prescriptions considered but not ordered:: none Medication administrations:: Medication Administration History Sodium Chloride (Ns) 1,000 mls @ 250 mls/hr IV .Q4H ONE Stop: 03/27/24 16:31 Last Admin: 03/27/24 12:59 Dose: 250 mls/hr Documented By: AM see above Consultations Consultation(s) initiated? (list below): Yes Consultation #1 (Physician, Specialty, Details): Discussed test HPI, PMHx, lab, radiology results and/or management with hospitalist. Will admit for further evaluation and management. Accepts patient for admission. Time: 14:21 Diagnosis Weakness Differential Diagnosis: hypoglycemia, dehydration and other ([place] toxicity) Most likely diagnosis given after review of the tests above:: [place] toxicity Admission Indicated Admission indicated?: indicated Admission Request Was there a request for admission?: Yes Admission Attestation Admission request attestation: Discussed case with [] from Hospitalist service regarding admission. Discussed patients ED course, exam findings, labs, and radiology results. The Hospitalist [agrees,declines] to accept the patient for admission. Disposition Plan Disposition Plan: Admit Discharge Plan Plan Patient Disposition: Admit Acute Care w/in Hospital Disposition Comment: Stable for admit Prescriptions/Referrals Prescriptions/Med Rec: No Action risperidone 4 mg tablet 8 mg PO HS lithium carbonate 300 mg Capsule 300 mg PO QAM lithium carbonate 300 mg Capsule 600 mg PO HS divalproex 500 mg tablet extended release 24 hr 1,000 mg PO QDAY benztropine 1 mg tablet 1 mg PO BID Patient Comments: take 1 tablet by mouth twice a day propranolol 60 mg capsule,extended release 24 hr 40 mg PO QDAY metformin 500 mg tablet 1 tab PO QID olanzapine 15 mg tablet 1 tab PO QDAY cholecalciferol (vitamin D3) 50 mcg (2,000 unit) capsule 1 cap PO QDAY Patient Comments: take 1 capsule by mouth once daily lithium carbonate 300 mg capsule 300 mg PO QAM Qty: 30 0RF lithium carbonate 300 mg tablet 600 mg PO .QHS Qty: 60 0RF risperidone 4 mg tablet 8 mg PO .QHS Qty: 60 0RF divalproex 500 mg tablet,delayed release (DR/EC) 500 mg PO BID Qty: 60 0RF benztropine 1 mg tablet 1 mg PO BID Qty: 60 0RF propranolol 40 mg tablet 40 mg PO QAM Qty: 30 0RF olanzapine 20 mg tablet 20 mg PO .QHS Qty: 30 0RF levothyroxine [Synthroid] 50 mcg tablet 50 mcg PO QDAY Qty: 30 0RF cephalexin 500 mg capsule 500 mg PO TID Qty: 21 0RF Referrals: No Primary/Family,Physician [Primary Care Provider] - In 1 week Problem List Clinical Impression: [place] toxicity Patient/Caregiver Discharge Instructions Print Language: Indonesian Stand Alone Forms: Cyndy Award Info., Patient Portal Info Letter
--- NOTE | 2024-03-27 12:32 | EKG_ITS ---
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
--- NOTE | 2024-03-27 12:32 | XR_ITS ---
Examination: CT brain head without contrast. 2-D sagittal coronal reconstructions Date and time of exam:March 27, 2024 1244 hrs. Indications: Onset altered mental status today CTDI: vol (mGy):52.3 DLP: (mGycm):1137 Technique: Multiple CT axial sections of the brain have been obtained, 5 mm slice thickness. Contrast has not been administered. 2-D sagittal, coronal reconstructions have been obtained Low dose protocols were performed. One or more of the following dose reduction techniques were used; automated exposure control, adjustment of the mA and/or KV according to patient size, use of iterative reconstruction technique. Findings: No significant ventricular enlargement. 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 No mass effect or midline shift Basal cisterns are not remarkable. Fourth ventricle is midline. Cranial vault intact. Impression: Negative for acute hemorrhage, mass effect or midline shift Advise clinical correlation and follow-up accordingly
[2024-03-27] MEDS: SODIUM CHLORIDE 0.9% 1000 ML 1,000 ML 250 ML IV (12:59)
[2024-03-27 13:03] LABS: Basophils % (Auto) 0 % (0-2.5); Eosinophils # (Auto) 0.3 Thou/mm3 (0.0-0.5); Eosinophils % (Auto) 4 % (0-10); Hematocrit 35.4 % (41.0-53.0); Hemoglobin 11.9 g/dL (13.5-16.0); Immature Granulocytes % (Auto) 1 % (0-0); Immature Granulocytes Auto 0.04 Thou/mm3 (0.00-0.00); Lymphocytes # (Auto) 1.5 Thou/mm3 (1.0-4.8); Lymphocytes % (Auto) 21 % (10-50); Mean Corpuscular HGB Conc 33.6 g/dl (31.0-37.0); Mean Corpuscular Hemoglobin 32.3 pg (25.0-35.0); Mean Corpuscular Volume 96 fL (80-100); Monocytes # (Auto) 0.5 Thou/mm3 (0.0-0.8); Monocytes % (Auto) 7 % (0-12); Neutrophils % (Auto) 68 % (37-80); Nucleated Red Blood Cell % 0 /100 WBC (0); Platelet Count 195 Thou/mm3 (140-440); RDW Standard Deviation 49.8 fL (35.1-43.9); Red Blood Count 3.68 Miln/mm3 (4.50-5.90); White Blood Count 7.4 Thou/mm3 (3.8-10.6)
[2024-03-27 13:21] LABS: Alanine Aminotransferase 12 U/L (10-49); Albumin, Serum 4.6 gm/dL (3.4-4.8); Albumin/Globulin Ratio 1.5 (1.2-2.2); Alkaline Phosphatase 122 U/L (46-116); Anion Gap 6 (7-16); Aspartate Amino Transferase 14 U/L (0-34); BUN/Creatinine Ratio 17 Ratio (12-20); Bilirubin,Total 0.5 mg/dL (0.3-1.2); Blood Urea Nitrogen 22 mg/dL (9-23); Calcium 10.1 mg/dL (8.3-10.6); Calcium (Corrected) 10.1 mg/dL (8.5-10.1); Carbon Dioxide 26.9 mMol/L (20.0-31.0); Chloride 105 mMol/L (98-107); Creatinine (Component) 1.3 mg/dL (0.6-1.3); Glucose 101 mg/dL (74-106); Osmolality,Calculated 278 (275-295); Potassium 4.1 mMol/L (3.4-5.1); Sodium 138 mMol/L (136-145); Total Protein 7.6 gm/dL (5.7-8.2); Troponin I < 0.020 ng/mL (0.0-0.045); eGFR > 60 See Note
[2024-03-27 13:22] LABS: Ammonia < 10 uMol/L (11-32)
[2024-03-27 13:59] LABS: Lithium 2.02 mEq/L (1.00-1.20)
[2024-03-27 14:48] LABS: Amphetamine/Methamp Scrn,U Negative (Negative); Barbiturate Screen,Urine Negative (Negative); Benzodiazepines Screen,Urine Negative (Negative); Benzoylecgonine Screen, Ur Negative (Negative); Fentanyl Screen,Urine Negative (Negative); Opiate Screen,Urine Negative (Negative); THC Screen,Urine Negative (Negative)
[2024-03-27] MEDS: SODIUM CHLORIDE 0.9% 1000 ML 1,000 ML 999 ML IV (15:18)
--- NOTE | 2024-03-27 16:17 | ESHP_ITS ---
Documentation for date of: 03/27/24 HPI History of Present Illness History of present illness: H&P is limited due to patient's mental status, patient is able to state his name and answer simple questions in a binary yes / no response. The patient is a 63-year-old male with a past medical history of psychiatric disorder who was brought into the emergency room complaining of generalized weakness. . Denies having any pain. Initial workup in the ER showed unremarkable CBC and CMP. [place] levels were ordered which are twice above normal, negative troponin and ammonia levels. Unsure of patient's baseline mental status at this point, CT head was done which was negative for intracranial hemorrhage. Patient received IV fluid bolus for lithium toxicity the patient was admitted to the medical floor for further observation management. Review of Systems Review of Systems ROS Unobtainable: unobtainable due to mental status Past Medical History Past Medical History CARDIAC: Positive Hypertension; Negative Congestive Heart Failure RESPIRATORY: Negative Chronic Obstructive Pulmonary Disease (COPD) GENITOURINARY: Negative Renal Disease ENDOCRINE: Positive Diabetes Mellitus Type 2; Negative Diabetes Mellitus Type 1 PSYCHO/SOCIAL: Positive Schizophrenia Social History SMOKING STATUS: Unknown if ever smoked Exam Vital Signs Temp Pulse Resp BP Pulse Ox O2 Del Method 98.0 F 45 L 16 115/56 L 99 Room Air 03/27/24 16:02 03/27/24 16:02 03/27/24 16:02 03/27/24 16:02 03/27/24 16:02 03/27/24 16:02 Narrative Exam General: AOx1, oriented only to self, mumbling most words Skin: Intact, no cyanosis or edema noted. HEENT: Atraumatic/normocephalic, ODAL[place], neck supple Heart: RRR, S1 and S2 without clicks or murmurs Lungs: Clear on auscultation bilaterally, no difficulty breathing Abdomen: Soft, nontender. Bowel sounds present . Vascular: Peripheral pulses palpable Neuro: No focal neurological deficits noted. Results: Labs 03/29/24 05:45 03/29/24 05:45 Labs: Short CBC 03/27/24 Range/Units 12:24 WBC 7.4 (3.8-10.6) Thou/mm3 Hgb 11.9 L (13.5-16.0) g/dL Hct 35.4 L (41.0-53.0) % Plt Count 195 (140-440) Thou/mm3 [facility] 03/27/24 12:24 Sodium 138 Potassium 4.1 Chloride 105 Carbon Dioxide 26.9 BUN 22 Creatinine 1.3 Glucose 101 Calcium 10.1 Cardiac Enzymes 03/27/24 Range/Units 12:24 Troponin I < 0.020 (0.0-0.045) ng/mL Liver Function 03/27/24 Range/Units 12:24 Total Bilirubin 0.5 (0.3-1.2) mg/dL AST 14 (0-34) U/L ALT 12 (10-49) U/L Alkaline Phosphatase 122 H (46-116) U/L Albumin 4.6 (3.4-4.8) gm/dL Quality Measures Quality Measures none Medications Home Medications and Allergies Home Medications ?Medication ?Instructions ?Recorded ?Confirmed ?Type benztropine 1 mg tablet 1 mg PO BID 01/14/19 03/28/24 History divalproex 500 mg tablet,extended 1,000 mg PO HS 01/14/19 03/28/24 History release 24 hr lithium carbonate 300 mg capsule 600 mg PO HS 01/14/19 03/28/24 History metformin 500 mg tablet 2 tab PO BID 12/05/21 03/28/24 History olanzapine 15 mg tablet 1 tab PO BID 12/05/21 03/28/24 History atorvastatin 20 mg tablet 20 mg PO QDAY 03/28/24 03/28/24 History divalproex 500 mg tablet,delayed 500 mg PO QDAY 03/28/24 03/28/24 History release empagliflozin 10 mg tablet 10 mg PO QDAY 03/28/24 03/28/24 History (Jardiance) lisinopril 5 mg tablet 5 mg PO QDAY 03/28/24 03/28/24 History loxapine succinate 5 mg capsule 5 mg PO BID 03/28/24 03/28/24 History propranolol 40 mg tablet 20 mg PO BID 03/28/24 03/28/24 History Allergies Allergy/AdvReac Type Severity Reaction Status Date / Time No Known Allergies Allergy Verified 03/27/24 12:10 Visit Medications Acetaminophen (Acetaminophen 325 Mg Tablet) 650 mg PO Q6H PRN PRN Reason: PAIN OR FEVER > 101 Stop: 04/26/24 16:13 Sodium Chloride (Ns) 1,000 mls @ 250 mls/hr IV .Q4H ONE Stop: 03/27/24 16:31 Last Infusion: 03/27/24 15:17 Dose: Infused Sodium Chloride (Ns) 1,000 mls @ 200 mls/hr IV .Q5H NEGRITO Stop: 03/28/24 12:59 Ondansetron HCl (Ondansetron Inj 2 Mg/Ml Inj 2 Ml) 4 mg IV Q6H PRN; Protocol PRN Reason: NAUSEA OR VOMITING Stop: 04/26/24 16:13 Sennosides (Senna Tablet) 2 tab PO BID PRN; Protocol PRN Reason: CONSTIPATION Stop: 04/26/24 16:13 Discontinued Medications Sodium Chloride (Ns) 1,000 mls @ 999 mls/hr IV .Q1H1M ONE Stop: 03/27/24 15:24 Last Admin: 03/27/24 15:18 Dose: 999 mls/hr Assessment & Plan Plan The patient is a 63-year-old male with a past medical history of psychiatric disorder who was brought into the emergency room complaining of generalized weakness. . Denies having any pain. Initial workup in the ER showed unremarkable CBC and CMP. [place] levels were ordered which are twice above normal, negative troponin and ammonia levels. Unsure of patient's baseline mental status at this point, CT head was done which was negative for intracranial hemorrhage. Patient received IV fluid bolus for lithium toxicity the patient was admitted to the medical floor for further observation management. 1. Acute encephalopathy 2. [place] toxicity 3. Sinus bradycardia 4. History of schizophrenia 5. History of diabetes mellitus Received IV fluid bolus in the ER and started on maintenance IV fluids at 250 cc an hour by ER physician. Patient has unremarkable CBC and normal electrolytes, will continue monitoring CMP. Repeat lithium level tomorrow, neurology consulted Dr. Simpson is placed. Pending urinalysis. Noted sinus bradycardia on EKG, normotensive on admission, will continue to monitor. Withholding lithium, propranolol Continue divalproex ER 500 mg Continue benztropine 1 mg Continue olanzapine Continue lisinopril Continue levothyroxine Sliding scale insulin Plan of care discussed with my attending, Dr. Telly Montiel [id number] Attending Provider Attestation/Addendum 63-year-old male with bipolar disorder on lithium presented with acute encephalopathy and lithium toxicity as patient's lithium level was more than 2. Poison control was consulted and recommended IV fluid resuscitation. Continue with monitoring lithium.I reviewed above note and agree with findings and plans. I have also personally examined the patient with medicine team and went over assessment and plan with medical team including pharmacy intern and resident physician.
[2024-03-27] MEDS: SODIUM CHLORIDE 0.9% 1000 ML 1,000 ML 200 ML IV (18:40)
[2024-03-27 19:20] LABS: Collection Type, Urine Clean Catch; RBC,Urine 0 /hpf (0-3)
[2024-03-27 19:38] LABS: Bilirubin,Urine Negative (Negative); Blood,Urine Negative (Negative); Clarity,Urine Clear (Clear/Hazy); Color,Urine Lt-Yellow (Lt Yel-Yel); Glucose, Urine 4+ (Negative); Ketones,Urine 1+ (Negative); Leukocyte Esterase,Urine Positive (Negative); Nitrite,Urine Negative (Negative); PH,Urine 6.5 (5.0-7.0); Protein,Urine Negative (Neg - Trace); Specific Gravity,Urine 1.024 (1.001-1.035); Squamous Epithelial Cell,Urine 1 /hpf (0-5); Urobilinogen,Urine Negative mg/dL (0.0-1.0); WBC,Urine 15 /hpf (0-5)
[2024-03-27] MEDS: BENZTROPINE 0.5 MG TABLET PO (21:36)
[2024-03-27] MEDS: DIVALPROEX SOD DR 500 MG TABLET.DR PO (21:36)
--- NOTE | 2024-03-27 22:03 | PC.NURSE ---
Pt given sandwich and water ate 100%
[2024-03-28] VITALS (15 sets, daily range): BP systolic 104–143; BP diastolic 58–85; PULSE 50–92; RESP 15–100; TEMP 36–37.1; O2SAT 95–100
[2024-03-28] MEDS: SODIUM CHLORIDE 0.9% 1000 ML 1,000 ML IV ×3 (00:34→10:00)
[2024-03-28 05:18] LABS: Basophils % (Auto) 0 % (0-2.5); Eosinophils # (Auto) 0.2 Thou/mm3 (0.0-0.5); Eosinophils % (Auto) 4 % (0-10); Hematocrit 27.7 % (41.0-53.0); Hemoglobin 9.6 g/dL (13.5-16.0); Immature Granulocytes % (Auto) 0 % (0-0); Immature Granulocytes Auto 0.01 Thou/mm3 (0.00-0.00); Lymphocytes % (Auto) 18 % (10-50); Mean Corpuscular HGB Conc 34.7 g/dl (31.0-37.0); Mean Corpuscular Hemoglobin 32.4 pg (25.0-35.0); Mean Corpuscular Volume 94 fL (80-100); Monocytes # (Auto) 0.5 Thou/mm3 (0.0-0.8); Monocytes % (Auto) 8 % (0-12); Neutrophils % (Auto) 70 % (37-80); Nucleated Red Blood Cell % 0 /100 WBC (0); Platelet Count 145 Thou/mm3 (140-440); RDW Standard Deviation 47.8 fL (35.1-43.9); Red Blood Count 2.96 Miln/mm3 (4.50-5.90); White Blood Count 5.7 Thou/mm3 (3.8-10.6)
[2024-03-28 05:34] LABS: INR 1.1 (0.9-1.3)
[2024-03-28 05:39] LABS: Glucose Estimated Average 97 mg/dL (80-131)
[2024-03-28 06:15] LABS: Alanine Aminotransferase 8 U/L (10-49); Albumin, Serum 3.3 gm/dL (3.4-4.8); Alkaline Phosphatase 93 U/L (46-116); Anion Gap 5 (7-16); Aspartate Amino Transferase 12 U/L (0-34); BUN/Creatinine Ratio 16 Ratio (12-20); Bilirubin,Direct 0.2 mg/dL (0.0-0.3); Bilirubin,Total 0.4 mg/dL (0.3-1.2); Blood Urea Nitrogen 14 mg/dL (9-23); Calcium 8.4 mg/dL (8.3-10.6); Carbon Dioxide 23.9 mMol/L (20.0-31.0); Cardiac Risk Estimate 2.9 RATIO (4.0-6.7); Chloride 113 mMol/L (98-107); Cholesterol 66 mg/dL (132-200); Creatinine (Component) 0.9 mg/dL (0.6-1.3); Glucose 92 mg/dL (74-106); HDL Cholesterol 23 mg/dL (40-60); LDL Cholesterol,Calculated 21 mg/dL (0-130); Magnesium 1.6 mg/dL (1.6-2.6); Osmolality,Calculated 283 (275-295); Phosphorous 3.1 mg/dL (2.4-5.1); Potassium 4.2 mMol/L (3.4-5.1); Sodium 142 mMol/L (136-145); Thyroid Stimulating Hormone 3.12 uIU/mL (0.55-4.78); Total Protein 5.3 gm/dL (5.7-8.2); Triglycerides 111 mg/dL (30-150); eGFR > 60 See Note
[2024-03-28 07:49] LABS: Lithium 1.38 mEq/L (1.00-1.20)
[2024-03-28] MEDS: DIVALPROEX SOD DR 500 MG TABLET.DR PO ×2 (09:46→20:36)
[2024-03-28] MEDS: Lisinopril 2.5 MG TABLET 5 MG PO (09:46)
[2024-03-28] MEDS: OLANZapine 5 MG TABLET 10 MG PO (09:46)
--- NOTE | 2024-03-28 10:06 | PC.CC ---
Pt Kwesi Tan is a 63 yr old male admitted to hospitalist services for acute encephalopathy, [place] toxicity and sinus bradycardia. ASW attempted to meet with pt at bedside to complete initial assessment. Pt noted to be asleep and not responding to his name being called. Information for assessment attained from pts historical encounters and from documentation from pts assisted living facility. Pt is from [address] In the past pts sister Hannah Tan [phone] has been identified as next of kin and alternate DM. At baseline pt is independently ambulatory with ambulation and in completion of his ADLs. Pt is diabetic. Pt is not on dialysis. Pt does not require supplemental O2. Pt is followed by Dr. Seals with [facility] for primary care. Pt is followed by [facility] Dr. Handy. Pt with hx of Schizoaffective disorder. At time of D/c pt will likely return to [facility] unless HLOC is warranted. Pt will need transport due to hx of slight mental delay. Pt would benefit from follow up appointments with PCP and .
--- NOTE | 2024-03-28 10:10 | PC.NURSE ---
assisted pt with eating x 2 chocolate pudding. Pt tolerating well. Pt cleaned and repositioned.
--- NOTE | 2024-03-28 16:29 | PC.NURSE ---
spoke to juan at [facility], received some medical history not complete. pt unable to provide complete history. attempted to call oniel sister of pt, no voicemail set up.
[2024-03-28 17:11] LABS: Lithium 1.09 mEq/L (1.00-1.20)
--- NOTE | 2024-03-28 17:39 | PC.NURSE ---
notified of consult md to see pt today
--- NOTE | 2024-03-28 18:10 | ESPR_ITS ---
Documentation for date of: 03/28/24 Subjective Subjective Interval history: 03/28: No acute overnight events patient seen and examined at bedside this morning patient is confused and still have mild tremor bilaterally in upper extremities. patient endorses improvement of dizziness and blurred vision he denies any chest pain or abdominal pain. Patient is unable to confirm how much lithium he is supposed to take because he is confused. Patient is a poor historian, patient did request if he could eat because he is very hungry therefore advanced his diet to dysphagia 1. Repeat lithium levels are downtrending. On admission lithium levels were 2.02 --> 1.38 --> 1.09. Exam Vital Signs Temp Pulse Resp BP Pulse Ox O2 Del Method 96.8 F 75 20 123/65 96 Room Air 03/28/24 16:00 03/28/24 16:00 03/28/24 16:00 03/28/24 16:00 03/28/24 16:00 03/28/24 16:00 Narrative Exam GENERAL: oriented only to self, Awake, Not in acute distress NEURO: no focal neurological deficits HEENT: Atraumatic, Normocephalic. mucous membranes moist. Eyes open, symmetrical, & clear HEART: Normal Heart Sounds LUNGS: Clear to auscultation with no wheezing or crackles. ABDOMEN: soft, non-distended, non-tender, bowel sounds heard, no guarding or rebound tenderness SKIN: No Rash or ecchymoses EXTREMITIES: Bilateral travel noted in upper extremities, no edema, tenderness, able to move all 4 extremities, pedal pulses palpated Objective Labs 03/29/24 05:45 03/29/24 05:45 Labs: Laboratory Results - last 24 hr 03/27/24 03/28/24 03/28/24 18:55 04:56 16:16 WBC 5.7 RBC 2.96 L Hgb 9.6 L D Hct 27.7 L MCV 94 MCH 32.4 MCHC 34.7 RDW Std Deviation 47.8 H Plt Count 145 D Neut % (Auto) 70 Lymph % (Auto) 18 [place] % (Auto) 8 Eos % (Auto) 4 Baso % (Auto) 0 Neut # (Auto) 4.0 Lymph # (Auto) 1.0 [place] # (Auto) 0.5 Eos # (Auto) 0.2 Baso # (Auto) 0.0 Immature Gran # (Auto) 0.01 H Absolute Nucleated RBC 0.00 Immature Gran % 0 Nucleated RBC % 0 PT 12.0 INR 1.1 Sodium 142 Potassium 4.2 Chloride 113 H Carbon Dioxide 23.9 Anion Gap 5 L BUN 14 Creatinine 0.9 Estim Creat Clear Calc Not Performed. eGFR > 60 BUN/Creatinine Ratio [address] Glu mg/dL 97 Hemoglobin A1c 5.0 Calculated Osmolality 283 Calcium 8.4 D Phosphorus 3.1 Magnesium 1.6 Total Bilirubin 0.4 Direct Bilirubin 0.2 AST 12 ALT 8 L Alkaline Phosphatase 93 D Total Protein 5.3 L Albumin 3.3 L D Triglycerides 111 Cholesterol 66 L LDL Cholesterol, Calc 21 HDL Cholesterol 23 L Cholesterol/HDL Ratio 2.9 L TSH 3.12 Ur Collection Type Clean Catch Urine Color Lt-Yellow Urine Clarity Clear Urine pH 6.5 Ur Specific [place] 1.024 Urine Protein Negative Urine Glucose (UA) 4+ A Urine Ketones 1+ A Urine Blood Negative Urine Nitrite Negative Urine Bilirubin Negative Urine Urobilinogen (Auto) Negative Ur Leukocyte Esterase Positive Urine RBC 0 Urine WBC 15 H Ur Squamous Epith Cells 1 Urine Bacteria None [place] 1.38 H 1.09 Quality Measures Quality Measures none Assessment & Plan Assessment Current Active Medications: Generic Name Dose Route Start Last Admin Trade Name Freq PRN Reason Stop Dose Admin Acetaminophen 650 mg 03/27/24 16:14 Acetaminophen 325 Mg Tablet PO 04/26/24 16:13 Q6H PRN PAIN OR FEVER > 101 Benztropine Mesylate 0.5 mg 03/27/24 21:00 03/27/24 21:36 Benztropine 0.5 Mg Tablet PO 04/26/24 20:59 0.5 mg HS NEGRITO Administration Dextrose 25 ml 03/27/24 17:50 Dextrose 50%-Water Inj 50 Ml Syringe IV 04/26/24 17:49 Q15MIN PRN BG 50-70 responsive npo pt Dextrose 50 ml 03/27/24 17:50 Dextrose 50%-Water Inj 50 Ml Syringe IV 04/26/24 17:49 Q15MIN PRN BG <50 OR BG <70 & pt unresponsive Divalproex Sodium 500 mg 03/27/24 21:00 03/28/24 09:[address] 500 Mg Tablet.Dr PO 04/26/24 20:59 500 mg BID NEGRITO Administration Glucagon 1 mg 03/27/24 17:50 Glucagon Inj 1 Mg Vial IM Q15MIN PRN BG <70, and no IV access Insulin Human Regular 0 unit 03/27/24 21:00 03/28/24 17:36 Insulin Hum Regular 1 Unit/0.01 Ml (Per Unit) SC 04/26/24 20:59 Not Given ACHS NEGRITO Protocol Lisinopril 5 mg 03/28/24 09:00 03/28/24 09:46 Lisinopril 2.5 Mg Tablet PO 04/27/24 08:59 5 mg QDAY NEGRITO Administration Olanzapine 10 mg 03/28/24 09:00 03/28/24 09:46 Olanzapine 5 Mg Tablet PO 04/27/24 08:59 10 mg QDAY NEGRITO Administration Ondansetron HCl 4 mg 03/27/24 16:14 Ondansetron Inj 2 Mg/Ml Inj 2 Ml IV 04/26/24 16:13 Q6H PRN NAUSEA OR VOMITING Protocol Sennosides 2 tab 03/27/24 16:14 Senna Tablet PO 04/26/24 16:13 BID PRN CONSTIPATION Protocol Plan The patient is a 63-year-old male with a past medical history of diabetes , hypothyroidism and schizophrenia who was brought into the emergency room complaining of generalized weakness. Denies having any pain. Initial workup in the ER showed unremarkable CBC and CMP. [place] levels were ordered which are twice above normal, negative troponin and ammonia levels. Unsure of patient's baseline mental status at this point, CT head was done which was negative for intracranial hemorrhage. Patient received IV fluid bolus for lithium toxicity the patient was admitted to the medical floor for further observation management. #Acute encephalopathy #[place] toxicity #History of schizophrenia -On admission patient was altered and confused poor historian -history of psychiatric disorder who was brought into the emergency room complaining of generalized weakness -[place] levels were ordered which are twice above normal (2.02) -Patient also have bilateral tremor in the upper extremities, he states he has blurry vision and mildly dizziness -CT head was done which was negative for intracranial hemorrhage -Ammonia levels are within normal limits Plan: -Hold home lithium and propranolol -Continue divalproex ER 500 mg -Continue benztropine 1 mg -Continue olanzapine ?Repeat lithium level tomorrow, neurology consulted Dr. Simpson is placed. -Urine tox is negative except for lithium levels of 2.02 -Will continue to check lithium levels every 4 hours -Patient received 5 L of normal saline, hydration is part of the lithium toxicity protocol -Advanced patient's diet to dysphagia 1 #Sinus bradycardia -Noted sinus bradycardia on EKG, normotensive on admission, will continue to monitor #History of diabetes mellitus -Continue lisinopril -Sliding scale insulin #History of hypothyroidism -TSH 3.12 on 03/28/2024 -Continue home levothyroxine Health Maintenance Disposition: Medsurg for monitoring lithium levels every 4 hours DVT Prophylaxis: SCD QSHIFT GI Prophylaxis: Not indicated Diet: Dysphagia 1 Lines: Peripheral lines Code status: Full Assessment and plan discussed with my attending physician Dr. Telly Gan (PGY-1)- Internal medicine resident Senior resident attestation: Patient evaluated and examined at the bedside, plan of care discussed with rest of the team including my attending physician, except as noted. The patient is a 63-year-old male with a past medical history of psychiatric disorder who was brought into the emergency room complaining of generalized weakness. . Denies having any pain. Initial workup in the ER showed unremarkable CBC and CMP. [place] levels were ordered which are twice above normal, negative troponin and ammonia levels. Unsure of patient's baseline mental status at this point, CT head was done which was negative for intracranial hemorrhage. Patient received IV fluid bolus for lithium toxicity the patient was admitted to the medical floor for further observation management. Neuro was consulted for further recommendations about restarting lithium. [place] levels returned to normal, crisis evaluation was ordered due to concern for unintentional self-harm, patient cleared from crisis. Can be discharged to facility, will restart lithium at prior dose, with strict instructions to adhere to prescribed dosage. 1. Acute encephalopathy 2. [place] toxicity 3. Sinus bradycardia 4. History of schizophrenia 5. History of diabetes mellitus Quresh PGY2 Attending Provider Attestation/Addendum 63-year-old male with bipolar disorder on lithium presented with acute encephalopathy and lithium toxicity as patient's lithium level was more than 2. Poison control was consulted and recommended IV fluid resuscitation. Continue with monitoring lithium.I reviewed above note and agree with findings and plans. Overnight, patient lithium level downtrending and currently alert and oriented to name, date of and place. Patient denies any suicidal or homicidal ideation and stated that he felt like he needed to take more pills however denies taking it for intentional harm. Will continue to monitor closely and once patient lithium level goes down to normal plan to obtain crisis eval. I have also personally examined the patient with medicine team and went over assessment and plan with medical team including product marketing intern and resident physician.
[2024-03-28] MEDS: INSULIN HUM REGULAR 1 UNIT/0.01 ML (PER UNIT) SC (20:31)
[2024-03-28] MEDS: BENZTROPINE 0.5 MG TABLET PO (20:32)
--- NOTE | 2024-03-28 23:23 | PD.NEUROCONS ---
History of Present Illness Data of Consult Requesting Physician: Maribell Varner MD Primary Care Provider: Physician No Primary/Family Consult Narrative cc:: cc: Maribell Varner MD Review of Systems Review of Systems ROS Unobtainable: unobtainable due to medical condition Past Medical History Past Medical History CARDIAC: Positive Hypertension; Negative Congestive Heart Failure RESPIRATORY: Negative Chronic Obstructive Pulmonary Disease (COPD) GENITOURINARY: Negative Renal Disease ENDOCRINE: Positive Diabetes Mellitus Type 2; Negative Diabetes Mellitus Type 1 PSYCHO/SOCIAL: Positive Schizophrenia Social History SMOKING STATUS: Unknown if ever smoked Meds Home Medications and Allergies Home Medications ?Medication ?Instructions ?Recorded ?Confirmed ?Type benztropine 1 mg tablet 1 mg PO BID 01/14/19 03/28/24 History divalproex 500 mg tablet,extended 1,000 mg PO HS 01/14/19 03/28/24 History release 24 hr lithium carbonate 300 mg capsule 600 mg PO HS 01/14/19 03/28/24 History metformin 500 mg tablet 2 tab PO BID 12/05/21 03/28/24 History olanzapine 15 mg tablet 1 tab PO BID 12/05/21 03/28/24 History atorvastatin 20 mg tablet 20 mg PO QDAY 03/28/24 03/28/24 History divalproex 500 mg tablet,delayed 500 mg PO QDAY 03/28/24 03/28/24 History release empagliflozin 10 mg tablet 10 mg PO QDAY 03/28/24 03/28/24 History (Jardiance) lisinopril 5 mg tablet 5 mg PO QDAY 03/28/24 03/28/24 History loxapine succinate 5 mg capsule 5 mg PO BID 03/28/24 03/28/24 History propranolol 40 mg tablet 20 mg PO BID 03/28/24 03/28/24 History Allergies Allergy/AdvReac Type Severity Reaction Status Date / Time No Known Allergies Allergy Verified 03/27/24 12:10 Exam - Neurology Vital Signs Temp Pulse Resp BP Pulse Ox O2 Del Method 97.7 F 63 18 123/70 95 Room Air 03/28/24 20:00 03/28/24 23:06 03/28/24 23:06 03/28/24 20:00 03/28/24 20:00 03/28/24 20:00 Narrative Exam GENERAL APPEARANCE: Well hydrated, well-nourished in no acute distress. HEENT: Normocephalic, atraumatic, extraocular movements intact. Pupils: Equal reacting to light NECK: Supple, no JVD or bruits. CARDIOVASULAR: Heart: S1, S2 heard, regular without S3-S4 or murmur no rubs or gallops. LUNGS/CHEST: Clear to auscultation bilaterally. No rails, rhonchi, or wheezing. Normal inspection. ABDOMEN: Soft, nontender, with normal bowel sounds. No pulsatile masses. No rebound, rigidity, or guarding. Normal inspection and palpation. EXTREMITIES: Normal inspection and palpation. No edema, clubbing or cyanosis. SKIN: Warm and dry without rashes. Normal inspection. MUSCULOSKELETAL: No cervical, thoracic, lumbar or midline bony tenderness. Normal inspection. NEURO: Alert, awake and oriented x1. Cranial nerves: II through XII grossly intact. Speech and language: Normal with no dysarthria or dysphasia. Motor system: Tone and bulk: Normal: Strength: Moves all 4 extremities; No pronator drift noted. Deep tendon reflexes: 1+ bilaterally symmetrical. Plantar reflex: Downgoing bilaterally. Sensory system: Intact to all modalities of sensation bilaterally. Coordination: Intact to [id number] and [id number] test bilaterally. No ataxia, no dysmetria, or dysdiadochokinesia noted. He does have action tremors in both upper extremities. Gait: Not tested. No signs of meningeal irritation noted. PSYCHIATRIC: Normal mood and affect. Results Labs 03/28/24 04:56 03/28/24 04:56 Labs: Short CBC 03/28/24 Range/Units 04:56 WBC 5.7 (3.8-10.6) Thou/mm3 Hgb 9.6 L D (13.5-16.0) g/dL Hct 27.7 L (41.0-53.0) % Plt Count 145 D (140-440) Thou/mm3 BMP 03/28/24 04:56 Sodium 142 Potassium 4.2 Chloride 113 H Carbon Dioxide 23.9 BUN 14 Creatinine 0.9 Glucose 92 Calcium 8.4 D Liver Function 03/28/24 Range/Units 04:56 Total Bilirubin 0.4 (0.3-1.2) mg/dL Direct Bilirubin 0.2 (0.0-0.3) mg/dL AST 12 (0-34) U/L ALT 8 L (10-49) U/L Alkaline Phosphatase 93 D (46-116) U/L Albumin 3.3 L D (3.4-4.8) gm/dL Assessment & Plan Assessment and plan (1) Altered mental status: Status: Acute Assessment and plan: Secondary to lithium toxicity his mental status is improving but not back to baseline Continue with the Depakote and olanzapine with benztropine to compensate for EPS side effects (2) [place] toxicity: Status: Acute Assessment and plan: [place] level was twice normal Continue to hold (3) Hypertension: Status: Chronic Assessment and plan: Stable on lisinopril (4) Type 2 diabetes mellitus: Status: Chronic Assessment and plan: Continue to check with fingerstick glucose and follow sliding scale insulin per protocol
[2024-03-29] VITALS (8 sets, daily range): BP systolic 122–138; BP diastolic 61–69; PULSE 61–75; RESP 18–98; TEMP 36.4–36.7; O2SAT 95–98; BMI 25.1
[2024-03-29 06:36] LABS: Basophils % (Auto) 0 % (0-2.5); Eosinophils # (Auto) 0.2 Thou/mm3 (0.0-0.5); Eosinophils % (Auto) 2 % (0-10); Hematocrit 28.3 % (41.0-53.0); Hemoglobin 9.6 g/dL (13.5-16.0); Immature Granulocytes % (Auto) 0 % (0-0); Immature Granulocytes Auto 0.03 Thou/mm3 (0.00-0.00); Lymphocytes # (Auto) 1.2 Thou/mm3 (1.0-4.8); Lymphocytes % (Auto) 15 % (10-50); Mean Corpuscular HGB Conc 33.9 g/dl (31.0-37.0); Mean Corpuscular Hemoglobin 32.2 pg (25.0-35.0); Mean Corpuscular Volume 95 fL (80-100); Monocytes # (Auto) 0.6 Thou/mm3 (0.0-0.8); Monocytes % (Auto) 8 % (0-12); Neutrophils # (Auto) 5.8 Thou/mm3 (1.8-7.7); Neutrophils % (Auto) 74 % (37-80); Nucleated Red Blood Cell % 0 /100 WBC (0); Platelet Count 153 Thou/mm3 (140-440); RDW Standard Deviation 47.9 fL (35.1-43.9); Red Blood Count 2.98 Miln/mm3 (4.50-5.90); White Blood Count 7.8 Thou/mm3 (3.8-10.6)
[2024-03-29 06:55] LABS: Anion Gap 7 (7-16); BUN/Creatinine Ratio 9 Ratio (12-20); Blood Urea Nitrogen 7 mg/dL (9-23); Calcium 9.1 mg/dL (8.3-10.6); Carbon Dioxide 24.7 mMol/L (20.0-31.0); Chloride 109 mMol/L (98-107); Creatinine (Component) 0.8 mg/dL (0.6-1.3); Glucose 83 mg/dL (74-106); Osmolality,Calculated 278 (275-295); Potassium 4.4 mMol/L (3.4-5.1); Sodium 141 mMol/L (136-145); eGFR > 60 See Note
[2024-03-29] MEDS: Lisinopril 2.5 MG TABLET 5 MG PO (09:58)
[2024-03-29] MEDS: DIVALPROEX SOD DR 500 MG TABLET.DR PO (09:58)
[2024-03-29] MEDS: OLANZapine 5 MG TABLET 10 MG PO (09:58)
--- NOTE | 2024-03-29 11:07 | PC.SS ---
SS update: medical team has requested a crisis mental health evaluation for the patient. They inform the patient is medically cleared for evaluation.
[2024-03-29] MEDS: INSULIN HUM REGULAR 1 UNIT/0.01 ML (PER UNIT) SC (11:56)
--- NOTE | 2024-03-29 12:52 | PC.SS ---
SS was informed by CEDRICK, Izzy pt is requiring a front wheel walker. SS has sent DME order for walker using [employer].
--- NOTE | 2024-03-29 13:06 | PC.SS ---
Patient is a 63 year-old male who presented to the hospital for generalized weakness. Upon medical care, patient had a high lithium level during toxicology report. Therefore, medical team requested a mental health evaluation for the patient. Ortega met with patient [id number] to complete assessment. Also present was VICE PRESIDENT PLANNING student, Kasandra Smiley. ASW introduced self, role, and reason for assessment. ASW disclosed limits of confidentiality as well. Patient appeared alert and oriented to self, place, and situation. Patient was pleasant and cooperative during the assessment. Patient?s thought process was linear and organized. No signs of delusions, paranoia or visual hallucinations observed. Patient informs he lives at [facility], independent living [facility]. Patient reports he is able to ambulate independently. Patient informs staff at [facility] provide the medication to him. Patient denies having access to medication. Patient denied currently having suicidal and homicidal ideations. Patient denies having visual and auditory hallucinations. Patient denied past suicidal attempts. Patient denies ever being placed on a 5150-hold. Patient denied substance use. Patient has a mental health diagnosis of Schizophrenia. The patient is connected to [facility]. The patient is seen by psychiatrist, Dr. Pedro and therapist, named Joe Solis. Patient has a history of being placed at psychiatric hospitals while on a 5150 hold for gravely disability in the past. Collateral contact: Spoke with Kiara at [facility], who confirmed patient mental health diagnosis and medication taken. Kiara informed staff administers the medication for the patient and patients do not have access to medications as they are locked away. Staff informs patient takes Zyprexa 15mg, Depakote 500mg, and [place] 300mg per staff. Patient follows with [facility]. Per staff, patient is at baseline. Patient follows Dr. Seals at [facility] for primary care. Staff reports patient has been independent with ADL?s. Staff denies patient having episodes of self-harm. Staff is agreeable with patient returning once cleared for discharge. Spoke with patient?s sister, Hannah Tan, who also also confirmed patient has been at baseline as he has been complaint with psychiatric medication. No concerns reported by patient?s sister regarding self-harm behaviors. After clinical consultation with Care Assistant Professor Of Life Sciences/DIRECTOR DIGITAL MARKETING-Effie Velasco, it is determined that the patient does not meet criteria for a 5150 hold. Patient is agreeable with continuing following up with his mental health providers. Patient was scheduled for a mental health follow up appointment for 04/07/24 at 2pm. Patient was provided with community resources and given emergency contact information to the [place] and local authorities. Plan is for the patient to return back to [facility]. Staff able to provide transportation for patient. Sol Alfaro, mental health case hardener, was also contacted and she will be following up with the patient this week on , 03/31/24. Attending Dr. Varner was updated that patient was cleared.
--- NOTE | 2024-03-29 14:28 | PC.SS ---
SS spoke to Kiara at [facility] [phone] (called numerous times and did not answer) who is aware pt is ready for d/c and walker has been ordered for pt. [facility] will provide transport at 5pm. Bedside nurse, Gordo is aware. Jessica VIZCAINO is aware. [facility] will deliver walker to bedside.
--- NOTE | 2024-03-29 15:28 | ESDS_ITS ---
Planned Discharge Date 03/29/24 DS: Providers Provider Date of admission: 03/28/24 00:14 Primary care physician: Physician No Primary/Family Admitting Provider: Maribell Varner MD Attending Provider on Admission: Maribell Varner MD Consults: 03/27/24 16:14 Referral Physical Therapy Stat Comment: Physician Instructions: 03/27/24 17:45 Consult to Neurology / Tele-Neurology Stat Comment: Consulting Provider: Danny Simpson Attending Provider on DC: Shaniqua Gan MD Discharging Provider: Shaniqua Gan MD DS: Diagnosis Problem List Completed Was Problem List Reviewed/Reconciled?: Yes Hospital Course Hospital Course Hospital course: Mr. Tan is a 63-year-old male with a past medical history of diabetes, hypothyroidism and schizophrenia who was brought [facility] emergency room on 03/27/24 complaining of generalized weakness. Patient was confused altered with mild tremor, dizziness and blurred vision patient denied having any pain. Initial CBC and CMP in the ER was unremarkable. Ida levels were ordered which are twice above normal, negative troponin and ammonia levels. CT head was done which was negative for intracranial hemorrhage. Patient received 5L IV fluid bolus for lithium toxicity the patient was admitted to the medical floor for further observation management. Today patient is hemodynamically stable and symptoms have resolved lithium levels have down trended from initial 2.02 --> 1.38 --> 1.09. Patient cleared crisis evaluation and lithium toxicity was likely accidental. Patient will be discharged to SNF as he requires detention facility. Recommend following up with neurologist outpatient. Recommend continuing lithium as prescribed, be mindful of overdose and not to take any extra me dication unless prescribed. In case of worsening symptoms please turn to the emergency room. #Acute encephalopathy #Ida toxicity #History of schizophrenia #History of diabetes mellitus #History of hypothyroidism Assessment and plan discussed with my attending physician Dr. Dr. Gan (PGY-1)- Internal medicine resident Time Spent with Patient Time attestation: Total time spent providing and/or coordinating discharge services: Exam Vital Signs Temp Pulse Resp BP Pulse Ox O2 Del Method 97.5 F 75 18 124/66 95 Room Air 03/29/24 12:00 03/29/24 12:00 03/29/24 12:00 03/29/24 12:00 03/29/24 12:00 03/29/24 12:00 Discharge Plan Plan Patient Disposition: Xfer Skilled Nsg Fac (SNF) Disposition Comment: Stable for admit Care Plan Goals: Recommend following up with neurologist outpatient. Recommend continuing lithium as prescribed, be mindful of overdose and not to take any extra medication unless prescribed. In case of worsening symptoms please turn to the emergency room. Prescriptions/Referrals Prescriptions/Med Rec: Continued lithium carbonate 300 mg Capsule 600 mg PO HS divalproex 500 mg tablet extended release 24 hr 1,000 mg PO HS benztropine 1 mg tablet 1 mg PO BID Patient Comments: take 1 tablet by mouth twice a day atorvastatin 20 mg tablet 20 mg PO QDAY lisinopril 5 mg tablet 5 mg PO QDAY Jardiance 10 mg tablet 10 mg PO QDAY loxapine succinate 5 mg capsule 5 mg PO BID divalproex 500 mg tablet,delayed release (DR/EC) 500 mg PO QDAY propranolol 40 mg tablet 20 mg PO BID metformin 500 mg tablet 2 tab PO BID olanzapine 15 mg tablet 1 tab PO BID levothyroxine [Synthroid] 50 mcg tablet 50 mcg PO QDAY Qty: 30 0RF Referrals: No Primary/Family,Physician [Primary Care Provider] - Patient/Caregiver Discharge Instructions Other Discharge Activity Instructions:: Recommend following up with neurologist outpatient. Recommend continuing lithium as prescribed, be mindful of overdose and not to take any extra medication unless prescribed. In case of worsening symptoms please turn to the emergency room. Print Language: [place] Islander Stand Alone Forms: Cyndy Award Info., Patient Portal Info Letter Discharge Order Discharge Orders: Discharge (Routine); Ordered 03/29/24 Ordered By: Jose Montiel Quality Discharge Quality Measures none
--- NOTE | 2024-03-29 17:00 | PC.NURSE ---
Report given to Kiara nurse from [facility], all questions answered.
--- NOTE | 2024-03-29 23:58 | PD.VPROG1 ---
Telemedicine visit statement This visit was conducted with the use of phone was obtained on 03/29/24. Documentation for date of: 03/29/24 Subjective Subjective Interval history: patient is in MedSurg, no new symptoms reported. Tremors somewhat better. Virtual exam Vital Signs Temp Pulse Resp BP Pulse Ox O2 Del Method 97.5 F 72 18 138/64 H 95 Room Air 03/29/24 15:51 03/29/24 16:00 03/29/24 15:51 03/29/24 15:51 03/29/24 15:51 03/29/24 15:51 Objective Labs 03/29/24 05:45 03/29/24 05:45 Labs: Laboratory Results - last 24 hr 03/29/24 05:45 WBC 7.8 RBC 2.98 L Hgb 9.6 L Hct 28.3 L MCV 95 MCH 32.2 MCHC 33.9 RDW Std Deviation 47.9 H Plt Count 153 Neut % (Auto) 74 Lymph % (Auto) 15 [place] % (Auto) 8 Eos % (Auto) 2 Baso % (Auto) 0 Neut # (Auto) 5.8 Lymph # (Auto) 1.2 [place] # (Auto) 0.6 Eos # (Auto) 0.2 Baso # (Auto) 0.0 Immature Gran # (Auto) 0.03 H Absolute Nucleated RBC 0.00 Immature Gran % 0 Nucleated RBC % 0 Sodium 141 Potassium 4.4 Chloride 109 H Carbon Dioxide 24.7 Anion Gap 7 BUN 7 L Creatinine 0.8 Estim Creat Clear Calc Not Performed. eGFR > 60 BUN/Creatinine Ratio 9 L Glucose 83 Calculated Osmolality 278 Calcium 9.1 Assessment & Plan Assessment 1) Altered mental status: improving Secondary to lithium toxicity his mental status is improving close to baseline Continue with the Depakote and olanzapine with benztropine to compensate for EPS side effects (2) [place] toxicity: [place] level was twice normal on admission Stable now, ok to be dc on [place] with close monitoring of his level. (3) Hypertension: Stable on lisinopril (4) Type 2 diabetes mellitus: continue Metformin and diet control.
== END 2024-03-29 18:00 | disposition skilled nursing facility (03) | DRG 201 ==
LOC: SERX 14:27 → SERHOLD 03-28 00:46 → S3NX 03-28 15:07
PROVIDERS: Student in an Organized Health Care Education/Training Program; Admitting Provider Internal Medicine; Emergency Provider Emergency Medicine; Visit Provider Internal Medicine
DX: R00.1 Bradycardia, unspecified (principal); T43.595A Adverse effect of other antipsychotics and neuroleptics, initial encounter; G93.40 Encephalopathy, unspecified; I10 Essential (primary) hypertension; F20.9 Schizophrenia, unspecified; E11.9 Type 2 diabetes mellitus without complications; E03.9 Hypothyroidism, unspecified; F31.9 Bipolar disorder, unspecified
CPT/HCPCS: 36415; 70450; 80048; 80053; 80061; 80076; 80178; 80307; 81001; 82140; 83036; 83735; 84100; 84443; 84484; 85025; 85610; 87081; 87811; 93005; 93225; 96127; 96360; 96361; 97162; 99291; J1815; J7030; A9270

== ENCOUNTER 2024-04-14 16:42 | Inpatient (IN) | payer MEDICAID, SELFPAY ==
--- NOTE | 2024-04-14 17:17 | PD.EDRME ---
Rapid Medical Screening Exam RME Arrival date/time: 04/14/24 16:42 Time Seen by Provider: 04/14/24 17:17 RME Narrative: 63-year-old male with a history of psychiatric disorder/dementia, sent in by his Sarah Faith lollypop machine operator for concerns that he is not eating . patient has no complaints. Focused workup was initiated. Further workup and examination will be conducted by the additional provider.
[2024-04-14 18:00] LABS: Basophils % (Auto) 0 % (0-2.5); Eosinophils # (Auto) 0.3 Thou/mm3 (0.0-0.5); Eosinophils % (Auto) 3 % (0-10); Hematocrit 30.2 % (41.0-53.0); Hemoglobin 10.1 g/dL (13.5-16.0); Immature Granulocytes % (Auto) 1 % (0-0); Immature Granulocytes Auto 0.05 Thou/mm3 (0.00-0.00); Lymphocytes # (Auto) 1.2 Thou/mm3 (1.0-4.8); Lymphocytes % (Auto) 16 % (10-50); Mean Corpuscular HGB Conc 33.4 g/dl (31.0-37.0); Mean Corpuscular Hemoglobin 32.7 pg (25.0-35.0); Mean Corpuscular Volume 98 fL (80-100); Monocytes # (Auto) 0.4 Thou/mm3 (0.0-0.8); Monocytes % (Auto) 5 % (0-12); Neutrophils # (Auto) 5.6 Thou/mm3 (1.8-7.7); Neutrophils % (Auto) 75 % (37-80); Nucleated Red Blood Cell % 0 /100 WBC (0); Platelet Count 209 Thou/mm3 (140-440); RDW Standard Deviation 49.9 fL (35.1-43.9); Red Blood Count 3.09 Miln/mm3 (4.50-5.90); White Blood Count 7.4 Thou/mm3 (3.8-10.6)
[2024-04-14 18:01] VITALS: BP 111/66; PULSE 64; RESP 18; TEMP 36.6; O2SAT 100
[2024-04-14 18:05] VITALS: PULSE 90; RESP 16; O2SAT 96; BMI 25.8
--- NOTE | 2024-04-14 18:21 | PC.NURSE ---
Pt. here from [place] to room 9, per hogshead stock clerk Bradly staff called EMS for pt. not eating, pt. states he doesn't like the food there, pt. states he doesn't know why he is here. Staff states that pt. is weak.
[2024-04-14 18:34] LABS: Alanine Aminotransferase 8 U/L (10-49); Albumin/Globulin Ratio 1.4 (1.2-2.2); Alkaline Phosphatase 94 U/L (46-116); Anion Gap 5 (7-16); Aspartate Amino Transferase < 10 U/L (0-34); BUN/Creatinine Ratio 19 Ratio (12-20); Bilirubin,Total 0.5 mg/dL (0.3-1.2); Blood Urea Nitrogen 23 mg/dL (9-23); Calcium 9.2 mg/dL (8.3-10.6); Calcium (Corrected) 9.2 mg/dL (8.5-10.1); Carbon Dioxide 25.9 mMol/L (20.0-31.0); Chloride 103 mMol/L (98-107); Creatinine (Component) 1.2 mg/dL (0.6-1.3); Estimated Creatinine Clearance 57.6 mL/min (>60); Globulin 2.9 gm/dL (2.3-3.5); Glucose 96 mg/dL (74-106); Osmolality,Calculated 271 (275-295); Potassium 5.4 mMol/L (3.4-5.1); Sodium 134 mMol/L (136-145); Total Protein 6.9 gm/dL (5.7-8.2); eGFR > 60 See Note
[2024-04-14 19:43] VITALS: BP 112/57; PULSE 51; RESP 19; TEMP 36.6; O2SAT 97
--- NOTE | 2024-04-14 20:54 | XR_ITS ---
Examination: AP chest single view Technique one AP portable semiupright chest single view Exam date and time: April 14, 2024 2100 hrs. Comparison March 01, 2024 Indications: Shortness of breath today. Findings: Reduced since yesterday. Mild enlargement left ventricle No suki pneumonia or pulmonary edema Impression: Poor inspiratory effort chest x-ray
--- NOTE | 2024-04-14 21:19 | PD.EDWEAK ---
ED Weakness RME/HPI General Chief complaint: Weakness Stated complaint: LOSS APPEITTE, LETHARGY Time Seen by Provider: 04/14/24 17:17 Arrival date/time: 04/14/24 16:42 Limitations: no limitations RME / HPI RME / HPI Narrative: 63-year-old male with a history of psychiatric disorder/dementia, sent in by his [facility] technical support specialist for concerns that he is not eating . patient has no complaints. Focused workup was initiated. Further workup and examination will be conducted by the additional provider. DR. VEGA MAIN ED EVALUATION: 63 year old male presents to the Emergency Department BIBA from [facility] with complaints of generalized weakness and not eating, patient states he does not like the food from the residential. Symptoms are mild to moderate. Patient denies any pain or complaints. PMHx: Diabetes, hypertension, schizophrenia, and dementia. Social Hx: No tobacco, alcohol, or substance use. Related Data Home Medications ?Medication ?Instructions ?Recorded ?Confirmed benztropine 1 mg tablet 1 mg PO BID 01/14/19 03/28/24 divalproex 500 mg tablet,extended 1,000 mg PO HS 01/14/19 03/28/24 release 24 hr lithium carbonate 300 mg capsule 600 mg PO HS 01/14/19 03/28/24 metformin 500 mg tablet 2 tab PO BID 12/05/21 03/28/24 olanzapine 15 mg tablet 1 tab PO BID 12/05/21 03/28/24 atorvastatin 20 mg tablet 20 mg PO QDAY 03/28/24 03/28/24 divalproex 500 mg tablet,delayed 500 mg PO QDAY 03/28/24 03/28/24 release empagliflozin 10 mg tablet 10 mg PO QDAY 03/28/24 03/28/24 (Jardiance) lisinopril 5 mg tablet 5 mg PO QDAY 03/28/24 03/28/24 loxapine succinate 5 mg capsule 5 mg PO BID 03/28/24 03/28/24 propranolol 40 mg tablet 20 mg PO BID 03/28/24 03/28/24 Previous Rx's ?Medication ?Instructions ?Recorded levothyroxine 50 mcg tablet 50 mcg PO QDAY #30 tabs 03/01/24 (Synthroid) Allergies Allergy/AdvReac Type Severity Reaction Status Date / Time No Known Allergies Allergy Verified 03/27/24 12:10 Review of Systems Review of Systems Systems Reviewed: All systems reviewed, normal except as documented Narrative Review of Systems: GEN: No fever, no chills, no weight loss EYES: No discharge, no visual changes, no pain HEENT: No ear pain, no congestion, no sore throat PULM: No shortness of breath, no cough, no congestion CV: No chest pain, no dyspnea on exertion, no palpitations GI: No nausea, no vomiting, no diarrhea, no pain, no constipation : No frequency, no urgency and no dysuria MUSC/SKEL: No joint pain, no back pain SKIN: No rash PSYCH: No hallucinations, no depression HEME/LYMPH: No easy bleeding or bruising tendencies NEURO: + generalized weakness, no headache Past Medical History Past Medical History CARDIAC: Positive Hypertension; Negative Congestive Heart Failure RESPIRATORY: Negative Chronic Obstructive Pulmonary Disease (COPD) GENITOURINARY: Negative Renal Disease ENDOCRINE: Positive Diabetes Mellitus Type 2; Negative Diabetes Mellitus Type 1 PSYCHO/SOCIAL: Positive Schizophrenia Social History SMOKING STATUS: Never smoker SUBSTANCE USE: does not use ED Exam General Limitations: Present no limitations General appearance: Present alert and in no apparent distress Head Head exam: Present atraumatic Eye Eye exam: Present normal appearance, PERRL and EOMI ENT ENT exam: Present normal exam, normal oropharynx and mucous membranes moist Neck Neck exam: Present normal inspection, full ROM and trachea midline Chest Chest inspection: Present normal inspection and symmetric chest wall rise Respiratory Respiratory exam: Present normal lung sounds bilaterally Cardiovascular Cardiovascular exam: Present regular rate, normal rhythm and normal heart sounds Abdominal Exam Abdominal exam: Present soft and normal bowel sounds Extremities Exam Extremities exam: Present normal inspection and full ROM Back Exam Back exam: Present normal inspection and full ROM Neurological Exam Neurological exam: Present alert, oriented X3 and CN II-XII intact Psychiatric Psychiatric exam: Present normal affect and normal mood Skin Skin exam: Present warm, dry, intact and normal color Course Quality Measures none Orders Category Date Time Status EKG (ED ONLY) *Do not use* NOW Care 04/15/24 02:[address] head/brain wo con Stat Exams 04/15/24 02:19 Taken CXRP [XR chest 1V portable] Stat Exams 04/14/24 20:54 Completed EKG (ED Only) Stat Exams 04/15/24 02:23 Draft Ammonia Stat Lab 04/15/24 03:08 Received CBC Stat Lab 04/14/24 17:48 Completed CMP [Comprehensive Metabolic Panel] Stat Lab 04/14/24 17:48 Completed [place] Stat Lab 04/14/24 17:48 Completed Urinalysis Stat Lab 04/15/24 02:25 Completed Sodium Chloride 0.9% 1000 ml [Ns] 1,000 ml Med 04/14/24 21:07 Discontinued IV 999 mls/hr Sodium Chloride 0.9% 1000 ml [Ns] 1,000 ml Med 04/15/24 02:22 Discontinued IV 999 mls/hr Vital Signs Vital signs: Vital Signs Temperature 97.9 F 04/14/24 18:01 Pulse Rate 64 04/14/24 18:01 Respiratory Rate 18 04/14/24 18:01 Blood Pressure 111/66 04/14/24 18:01 Pulse Oximetry (%) 100 04/14/24 18:01 Oxygen Delivery Method Room Air 04/14/24 18:01 Weakness MDM Narrative MDM Narrative:: I, Casandra Christensen am scribing for and in the presence of Dr. Vega. Patient data External records reviewed:: [facility] previous records (Reviewed neurology note by Dr. Simpson, dated 03/29/24.) and EMS form Clinical information provided by:: patient and EMS Social determinants that could affect healthcare access:: housing ([facility]) Patient has the following chronic illnesses:: Diabetes, hypertension, schizophrenia, and dementia How is presenting disease/condition affected by chronic disease/condition?: exacerbated by Evaluation data The following diagnostics were reviewed and interpreted by me:: lab results and radiology exam(s) Lab and/or radiology exams considered but not ordered:: none Interpretation Summary: Procedure(s): XR chest 1V portable Accession Number(s): [id number] cc: Hamzah Dyson MD; NO PRIMARY/FAMILY,PHYSICIAN; Tracy Vega MD~ Examination: AP chest single view Technique one AP portable semiupright chest single view Exam date and time: April 14, 2024 2100 hrs. Comparison March 01, 2024 Indications: Shortness of breath today. Findings: Reduced since yesterday. Mild enlargement left ventricle No suki pneumonia or pulmonary edema Impression: Poor inspiratory effort chest x-ray Dictated By: Hamzah Dyson MD T[place] Preliminary Report Draft Patient: RUDI BERGER. Record#: [id number] Birthdate: 1960 Age/Sex: 63 / M Location: [facility] Attending Dr: Ordering Physician: Date of Service: Procedure(s): Accession Number(s): cc: ~ CT scan of the head without intravenous contrast (axial sections with sagittal and coronal reformats). April 15, 2024 0242 hours Clinical History: 63 yo with elelaved lithium level Comparison: None Findings: There is no intracranial hemorrhage, extra-axial collection, mass, mass-effect or midline shift. There is mild white matter disease within the cerebral hemispheres which is nonspecific but may represent chronic small vessel ischemic change. There is good mora-white differentiation. There is no CT evidence of acute large vascular territorial infarct. There is atherosclerotic calcification along the carotid siphons. Ventricles are not enlarged or effaced. Visualized paranasal sinuses and tympanomastoid cavities are clear except for trace bilateral maxillary sinus fluid/mucosal thickening. The bony calvarium is intact. Impression: No intracranial hemorrhage, mass-effect or midline shift. No CT evidence of acute large vascular territorial infarct. Report Electronically Signed By: Esteban Gonzalez 04/15/2024 3:10:58 AM [EST] Medications / Prescriptions Medications or Prescriptions considered but not ordered:: none Medication administrations:: Medication Administration History Discontinued Medications Sodium Chloride (Ns) 1,000 mls @ 999 mls/hr IV .Q1H1M ONE Stop: 04/14/24 22:07 Last Infusion: 04/14/24 22:49 Dose: Infused Documented By: Admin: 04/14/24 21:28 Dose: 999 mls/hr Documented By: MATTY Sodium Chloride (Ns) 1,000 mls @ 999 mls/hr IV .Q1H1M ONE Stop: 04/15/24 03:22 Last Admin: 04/15/24 02:56 Dose: 999 mls/hr Documented By: RIOS see above Diagnosis Weakness Differential Diagnosis: sepsis, dehydration and other (UTI, dementia, failure to thrive) Discharge Plan Prescriptions/Referrals Prescriptions/Med Rec: No Action lithium carbonate 300 mg Capsule 600 mg PO HS divalproex 500 mg tablet extended release 24 hr 1,000 mg PO HS benztropine 1 mg tablet 1 mg PO BID Patient Comments: take 1 tablet by mouth twice a day atorvastatin 20 mg tablet 20 mg PO QDAY lisinopril 5 mg tablet 5 mg PO QDAY Jardiance 10 mg tablet 10 mg PO QDAY loxapine succinate 5 mg capsule 5 mg PO BID divalproex 500 mg tablet,delayed release (DR/EC) 500 mg PO QDAY propranolol 40 mg tablet 20 mg PO BID metformin 500 mg tablet 2 tab PO BID olanzapine 15 mg tablet 1 tab PO BID levothyroxine [Synthroid] 50 mcg tablet 50 mcg PO QDAY Qty: 30 0RF Referrals: No Primary/Family,Physician [Primary Care Provider] - In 1 week Patient/Caregiver Discharge Instructions Print Language: Iraqi
[2024-04-14] MEDS: SODIUM CHLORIDE 0.9% 1000 ML 1,000 ML 999 ML IV (21:28)
[2024-04-14 22:22] LABS: Lithium 1.85 mEq/L (1.00-1.20)
[2024-04-14 22:44] VITALS: BP 90/46; PULSE 58; RESP 14; TEMP 36.9; O2SAT 99
[2024-04-15] VITALS (9 sets, daily range): BP systolic 108–142; BP diastolic 49–69; PULSE 50–98; RESP 16–97; TEMP 36.4–36.7; O2SAT 97–100
--- NOTE | 2024-04-15 02:19 | XR_ITS ---
Examination: CT brain head without contrast. 2-D sagittal coronal reconstructions Date and time of exam:April 15, 2024 at 0242 hrs. Comparison March 27, 2024 Indications: Lethargy altered mental status today CTDI: vol (mGy):49 DLP: (mGycm):1011 Technique: Multiple CT axial sections of the brain have been obtained, 5 mm slice thickness. Contrast has not been administered. 2-D sagittal, coronal reconstructions have been obtained Low dose protocols were performed. One or more of the following dose reduction techniques were used; automated exposure control, adjustment of the mA and/or KV according to patient size, use of iterative reconstruction technique. Findings: No significant ventricular enlargement. Intra-axial or extra-axial hemorrhage density is not seen. No mass effect or midline shift Basal cisterns are not remarkable. Fourth ventricle is midline. Cranial vault intact. Left maxillary sinusitis Impression: Negative for acute hemorrhage, mass effect or midline shift Advise clinical correlation and follow-up accordingly
--- NOTE | 2024-04-15 02:23 | EKG_ITS ---
[facility] Test Date: 2024-04-15 Pat Name: RUDI BERGER Department: Room: - Gender: Male Manager Billing: : 1960 Requested By: Tracy Beltran Order Number: [id number] Reading MD: Tracy Beltran Measurements Intervals [place] Rate: 52 P: 30 AL: 192 QRS: -9 QRSD: 100 T: 94 QT: 426 QTc: 397 Interpretive Statements SINUS BRADYCARDIA LOW QRS VOLTAGE IN PRECORDIAL LEADS [QRS DEFLECTION < 1.0 mV IN CHEST LEADS] MODERATE T-WAVE ABNORMALITY, CONSIDER ANTERIOR ISCHEMIA [-0.1+ mV T-WAVE IN V3/V4] Compared to ECG 03/27/2024 14:06:47 First degree AV block no longer present T-wave abnormality still present Possible ischemia still present /store/S0/[id number]/ecg/[id number].pdf
[2024-04-15 02:30] LABS: Collection Type, Urine Catheter
[2024-04-15 02:45] LABS: Bilirubin,Urine Negative (Negative); Blood,Urine Negative (Negative); Clarity,Urine Clear (Clear/Hazy); Color,Urine Lt-Yellow (Lt Yel-Yel); Glucose, Urine 4+ (Negative); Ketones,Urine Negative (Negative); Leukocyte Esterase,Urine Negative (Negative); Nitrite,Urine Negative (Negative); Protein,Urine Negative (Neg - Trace); RBC,Urine 4 /hpf (0-3); Specific Gravity,Urine 1.013 (1.001-1.035); Squamous Epithelial Cell,Urine < 1 /hpf (0-5); Urobilinogen,Urine Negative mg/dL (0.0-1.0); WBC,Urine 4 /hpf (0-5)
[2024-04-15] MEDS: SODIUM CHLORIDE 0.9% 1000 ML 1,000 ML 999 ML IV (02:56)
--- NOTE | 2024-04-15 03:12 | PRELIM_ITS ---
CT scan of the head without intravenous contrast (axial sections with sagittal and coronal reformats) . April 15, 2024 0242 hours Clinical History: 63 yo with elelaved lithium level Comparison: NoneFin dings:There is no intracranial hemorrhage, extra-axial collection, mass, mass-effect or midline shift .There is mild white matter disease within the cerebral hemispheres which is nonspecific but may repr esent chronic small vessel ischemic change.There is good mora-white differentiation. There is no CT evidence of acute large vascular territorial infarct.There is atherosclerotic calcification along the carotid siphons.Ventricles are not enlarged or effaced.Visualized paranasal sinuses and tympanomasto id cavities are clear except for trace bilateral maxillary sinus fluid/mucosal thickening. The bony calvarium is intact.Impression:No intracranial hemorrhage, mass-effect or midline shift. No CT evide nce of acute large vascular territorial infarct. Report Electronically Signed By: Esteban Gonzalez 5 3:10:58 AM [EST]
[2024-04-15 03:39] LABS: Ammonia < 10 uMol/L (11-32)
[2024-04-15 06:46] LABS: Lithium 1.53 mEq/L (1.00-1.20)
--- NOTE | 2024-04-15 11:45 | PD.EDADDENDU ---
Emergency Room Addendum Addendum Narrative: 0600: Care assumed from Dr. Vega, the previous shift emergency physician. Past medical, surgical, social and family history reviewed. Vitals and home medications reviewed. I will assume the care of the patient at this time, pending labs, reassessment, and final disposition. Please refer to the emergency department record for history and examination from initial visit.? EMS notes reviewed by me. Nursing notes reviewed by me. Vital signs reviewed by me. [place] medical records reviewed by me. 1050: I spoke with resident Dr. Brown working with Dr. Arevalo. Discussed patients PMHx, HPI, ED course, exam findings, labs, and radiology results. State they will come down and evaluate the patient in the ED. 1215: Dr. Arevalo accepted for admission.
[2024-04-15] MEDS: PANTOPRAZOLE 40 MG TABLET PO (12:44)
[2024-04-15] MEDS: SODIUM CHLORIDE 0.9% 1000 ML 1,000 ML 70 ML IV (12:44)
--- NOTE | 2024-04-15 12:54 | PD.RESHP ---
Documentation for date of: 04/15/24 HPI History of Present Illness History of present illness: CC: confused Patient is a 63-year-old male with a past medical history of diabetes mellitus type 2 on metformin and Jardiance, hypertension, history of bipolar disorder, schizoaffective disorder, mild cognitive disorder and hypothyroidism. Patient was brought to the emergency room via EMS from [facility] in assisted living facility located in [place]. Per staff at [facility] patient has lost significant amount of weight over the last couple months going from 180 pounds to 140 pounds. Patient has had decreased appetite. Increasing hypotension blood pressures 80/40s. Patient is alert but not oriented x 0. Previous hospitalization on March 27, 2024 secondary to lithium toxicity. Per staff at [facility] denied any sick contacts, denied any hematochezia or melena, denied hematemesis or hemoptysis. Patient recently returned to the facility from a [facility] after being placed on a hold. Patient is admitted for acute metabolic encephalopathy, FRANCES, mild hyponatremia. ER course Patient's vital on arrival blood pressure was 111/66, heart rate 64, respiratory rate of 18, saturating well on room air. CBC showed normal white blood count, normocytic anemia with a steady decline since November 2023. Mild hyponatremia 134, elevated potassium 5.4 bicarb within normal range. Osmolarity 271 mild FRANCES increase of creatinine from 0.8-1.2. BUN/creatinine ratio at 19. Glucose within normal limits. Ammonia levels within normal limits. [place] levels at 1.55. UA negative. Patient was given 2 L bolus in the ER.CT head remains unchanged since previous admissions, no acute hemorrhage or mass effect or midline shift. EKG on admission sinus bradycardia. PMH: Diabetes Mellitus Type II non insulin dependent Hypertension Hypotension ? Bipolar Schizoaffect Disorder Mild Congnitive Disorder Hypothyroidism Home Medication: Jardiance 10 mg once daily Metformin 100 mg once daily Benztropine 1 mg BID Atorvastatin 20 mg HS Divalproex ER 500 mg 1 tablet every monring and 2 tablets at night Will update medication AM as previously listed as QDay in EMR system Lisinopril 5 mg once daily Propranolol 20 mg BID [place] Carbonate Cap 600 mg HS Loxapine 5 mg BID Levothyroxine 50 mg once daily Olanzapine 15 mg BID Social History: Allergies: None Code Status: Full code Review of Systems Review of Systems Narrative Review of Systems: General appearance: YES weight change, NO fatigue, YES weakness, NO fever, NO chills, NO night sweats, No cough Skin: NO rash, NO itching, NO sores, NO moles HEENT: NO Trauma, NO nausea, NO vomiting, NO visual changes, NO blurry vision, NO double vision, NO tinnitus, NO vertigo, NO ear discharge, NO rhinorrhea, NO stuffiness, NO sneezing, NO allergy, NO epistaxis. NO Hoarseness, NO sore throat, NO swollen neck. Cardiac: NO Palpitations, NO dyspnea on exertion, NO orthopnea, NO paroxysmal nocturnal dyspnea, NO edema Respiratory: NO Shortness of Breath, NO Wheezing, NO Cough, NO Sputum, NO hemoptysis GI:NO appetite, NO nausea, NO vomiting, NO dysphagia, NO changes in bowel frequency, NO stool color, NO diarrhea, NO constipation, NO hemetemesis, NO hemorrhoids, NO melena, NO hematechezia, NO abdominal pain, NO jaundice Renal: NO frequency, NO hesitancy, NO urgency, NO hematuria, NO nocturia, NO incontinence MSK: NO muscle weakness, NO gout, NO arthritis, NO muscle stiffness Neuro: NO headaches, NO tremors, NO weakness, NO paralysis, NO seizures, NO loss of consciousness, NO numbness, yes confusion Hem: NO anemia, NO easy bruising/bleeding, NO petechiae, NO purpura Endo: NO heat/cold intolerance, NO excessive sweating, NO polyuria, NO polydipsia, NO polyphagia, Yes thyroid problems, YES diabetes Pysch: NO mood, NO anxiety, NO depression Exam Vital Signs Temp Pulse Resp BP Pulse Ox O2 Del Method FiO2 97.5 F 98 18 119/62 99 Room Air 99 04/15/24 12:40 04/15/24 12:40 04/15/24 12:40 04/15/24 12:40 04/15/24 12:40 04/15/24 12:40 04/15/24 12:21 Narrative Exam General Appearance: Alert & Oriented X0, well-nourished male who is lying in bed in mild distress HEENT: Skull symmetrical and atraumatic. Conjunctivae pin and moist. Pupils equal, round, reactive to light and accommodation (PERRL). External ear without lesion or discharge. Straight, nares patient, mucosa pink, no discharge. No thyroid nodule appreciated. No cervical lymphadenopathy. Cardio: Sinus Lui and Rhythm with S1 and S2 heart sounds. No murmurs or extra heart sounds auscultated. No bruits on carotid auscultation. No peripheral edema or cyanosis. Lungs: Symmetric with good expansion. Chest and back non-tender. Breath sounds vesicular without crackles, wheezing or rhonchi Abdomen: Non-tender, Non-distended, Normal Reactive Bowel Sounds Neuro: YES Alert, Yes cooperative, No oriented to person, No place, and No time. Speech Not clear. CN grossly intact. Upper motor strength 5/5 and Lower motor strength 5/5. Sensation intact. Results: Labs 04/16/24 04:31 04/16/24 04:31 Labs: Short CBC 04/14/24 Range/Units 17:48 WBC 7.4 (3.8-10.6) Thou/mm3 Hgb 10.1 L (13.5-16.0) g/dL Hct 30.2 L (41.0-53.0) % Plt Count 209 D (140-440) Thou/mm3 BMP 04/14/24 17:48 Sodium 134 L Potassium 5.4 H Chloride 103 Carbon Dioxide 25.9 BUN 23 Creatinine 1.2 Glucose 96 Calcium 9.2 Liver Function 04/14/24 Range/Units 17:48 Total Bilirubin 0.5 (0.3-1.2) mg/dL AST < 10 (0-34) U/L ALT 8 L (10-49) U/L Alkaline Phosphatase 94 (46-116) U/L Albumin 4.0 (3.4-4.8) gm/dL Urine 04/15/24 Range/Units 02:25 Urine Color Lt-Yellow (Lt Yel-Yel) Urine Clarity Clear (Clear/Hazy) Urine pH 7.0 (5.0-7.0) Ur Specific [place] 1.013 (1.001-1.035) Urine Protein Negative (Neg - Trace) Urine Glucose (UA) 4+ A (Negative) Quality Measures Quality Measures none Medications Home Medications and Allergies Home Medications ?Medication ?Instructions ?Recorded ?Confirmed ?Type benztropine 1 mg tablet 1 mg PO BID 01/14/19 04/16/24 History divalproex 500 mg tablet,extended 1,000 mg PO HS 01/14/19 04/16/24 History release 24 hr lithium carbonate 300 mg capsule 600 mg PO HS 01/14/19 04/16/24 History metformin 500 mg tablet 2 tab PO BID 12/05/21 04/16/24 History olanzapine 15 mg tablet 1 tab PO BID 12/05/21 04/16/24 History atorvastatin 20 mg tablet 20 mg PO QDAY 03/28/24 04/16/24 History divalproex 500 mg tablet,delayed 500 mg PO QDAY 03/28/24 04/16/24 History release empagliflozin 10 mg tablet 10 mg PO QDAY 03/28/24 04/16/24 History (Jardiance) lisinopril 5 mg tablet 5 mg PO QDAY 03/28/24 04/16/24 History loxapine succinate 5 mg capsule 5 mg PO BID 03/28/24 04/16/24 History propranolol 40 mg tablet 20 mg PO BID 03/28/24 04/16/24 History docusate sodium 250 mg capsule 250 mg PO QDAY PRN Constipation 04/16/24 04/16/24 History Allergies Allergy/AdvReac Type Severity Reaction Status Date / Time No Known Allergies Allergy Verified 03/27/24 12:10 Visit Medications Acetaminophen (Acetaminophen 325 Mg Tablet) 650 mg PO Q6H PRN PRN Reason: Mild Pain 1-3 or Fever >100.4 Stop: 05/15/24 12:20 Heparin Sodium (Porcine) (Heparin Sod Inj 5000 Unit/Ml Vial) 5,000 unit SC Q12HR [facility] Stop: 04/29/24 20:59 Sodium Chloride (Ns) 1,000 mls @ 70 mls/hr IV .[id number] [facility] Stop: 05/15/24 12:25 Last Admin: 04/15/24 12:44 Dose: 70 mls/hr Ondansetron HCl (Ondansetron Inj 2 Mg/Ml Inj 2 Ml) 4 mg IV Q6H PRN; Protocol PRN Reason: NAUSEA OR VOMITING Stop: 05/15/24 12:20 Pantoprazole Sodium (Pantoprazole 40 Mg Tablet) 40 mg PO QDAY [facility] Stop: 05/15/24 12:29 Last Admin: 04/15/24 12:44 Dose: 40 mg Sennosides (Senna Tablet) 1 tab PO QDAY PRN; Protocol PRN Reason: constipation Stop: 05/15/24 12:20 Discontinued Medications Sodium Chloride (Ns) 1,000 mls @ 999 mls/hr IV .Q1H1M ONE Stop: 04/14/24 22:07 Last Infusion: 04/14/24 22:49 Dose: Infused Sodium Chloride (Ns) 1,000 mls @ 999 mls/hr IV .Q1H1M ONE Stop: 04/15/24 03:22 Last Infusion: 04/15/24 04:15 Dose: Infused Assessment & Plan Plan Patient is a 63-year-old male with a past medical history of diabetes mellitus type 2 on metformin and Jardiance, hypertension, history of bipolar disorder, schizoaffective disorder, mild cognitive disorder and hypothyroidism who was admitted on 04/15/2024 for acute metabolic encephalopathy, FRANCES and Mild Hyponatremia. #Acute Metabolic Encephalopathy Patient presented with altered mental status from baseline according to SNF likely secondary to lithium toxicity. DDx: Per SNF patient has had persistent hypotension which is likely secondary to poly pharmacy vs worsening of psychiatry conditions less likely secondary to stroke as multiple CT heads have been negative vs Less likely secondary to infectious cause as WBC within normal limits. Plan: -Normal Saline 70 cc -Hold [place] -Pending Neuro recs #FRANCES Mild FRANCES noted with a change in Cr >0.3 from previous baseline of 0.8 to 1.2. Given BUN/Cr ratio, likely Pre-renal form poor oral intake form SNF vs Intrinsic injury for medicaiton such as lisinopril can not be ruled out as patient has several episodes of hypotension vs Injury for Obstructive cause less likely as patient is able to have good urine output Plan -Holding anti-hypertensive medication, holding Beta yovani, Holding [place] -Normal Saline 70 cc #Mild Hyponatremia Hypovelemic Patient appears volume depleted/hypovolemic with the sodium levels of 134 (low) and osmolarity of 271 which would put patient as hyponatremic and hypoosmotic. Given UA test noted to have elevated glucose and urine but normal A1c levels consider glucosuria as cause of hyponatremia. DDx hypovolemia less likely secondary to extrarenal losses such as vomiting or diarrhea exertional history of this per SNF. Although SIADH secondary to lithium can occur this would be a more rare occurrence and patient would appear isovolemic. BUN within normal range so this cannot be ruled out. Adrenal insufficiency can not be ruled out Na 134, Osmolarity 271, UA: 4+ glucose noted NA deficient (desired Na 140): 232.5 mEq Plan -Normal saline at 70 cc/h -Consider urine electrolytes/sodium -Consider nephrology consult #Failure to Thrive Decreased oral intake with a significant decrease in weight of 40 lbs. Consider worsening condition of psychiatry history vs infectious cause such as HIV/Hep vs malignancy Plan -Holding [place] -Celery Wrapper Referral AM #Hypertension #Hypotension Patient has a past medical history of hypertension but has had decreased blood pressure readings at [facility]. MAP of 53. Given patient's altered mental status, decreased MAP may be contributing to changing in mentation. Plan -Holding Lisinopril, consider stopping on discharge -obtain orthostatic vitals -Holding Propranolol consider stopping on discharge -Fluid maintenance #Diabetes Mellitus Type 2 non-insulin dependent Patient has a past medical history of diabetes mellitus [id number], given significant weight loss of 40 pounds over the past several months and an A1c of 5.0 on previous admission, currently holding Jardiance and metformin. [place] toxicity may lead to NDI. Plan -D/C Jardiance and Metformin on discharge -Hypoglycemic Protocol -glucose check every 6 hours -Follow Fasting Glucose AM, may dc glucose bedside checks if within normal limits #Bipolar Disorder #Schizoaffective Disorder #Mild Cognitive Disorder Resume Divalproex and Olanzapine 15 mg PO BID #Hyperlipidemia Resume Atorvastatin 20 mg PO HS #Hypothyroidism Jesse has a past medical history of hypothyroidism on levothyroxine. Patient also uses [place] which may be contributing to diagnosis of hypothyroidism and repeat admission for lithium toxicity. Currently holding [place]. Previous TSH (03/28/2024) 3.12 Plan -Resume Levothyroxine 50 mcg Qday prior to meals -Follow up with TSH levels Health Maintenance: Disp: Pt is currently admitted to floors for further management of acute metabolic encephalopathy , awaiting neuro recs FEN:Cardiac Diet DVT: on subQ heparin Code: Full Code - The patient's plan was discussed with attending Dr Arevalo and senior residents Dr. Shalini Vines MD PGY1 Internal Medicine Senior Resident Attestation: I discussed with and supervised the video editing internship physician involved in the care of this patient. I personally saw and examined the patient and discussed the assessment and plan with the entire medicine team, including my attending. I agree with the assessment and plan as documented above. 63-year-old male with a past medical history of diabetes mellitus type 2 on metformin and Jardiance, hypertension, history of bipolar disorder, schizoaffective disorder, mild cognitive disorder and hypothyroidism who was admitted on 04/15/2024 for acute metabolic encephalopathy, FRANCES and Mild Hyponatremia. [place] toxicity, cont fluids, monitor levels and neuro necks. No need for emergent dialysis. - Patient's care was discussed with my attending physician. Alex Loya MD Internal Medicine PGY-3 Attending Provider Attestation/Addendum I have examined the patient, reviewed labs and imaging findings, discussed the case with the resident(s), and reviewed entered orders. I agree with the plan of care as outlined in this note, with these additional summaries/recommendations: Patient is a 63-year-old male with a medical history of bipolar disorder, schizoaffective disorder, hypothyroidism, primary hypertension, diabetes mellitus type 2 who presents to [facility] emergency department on 04/15/2024 with chief complaint of altered mental status and thus hospitalist team consulted for continuation of care. Patient diagnosed with acute metabolic encephalopathy. Most likely secondary to lithium toxicity. Patient is currently ANO x 1. Hold lithium. Start IV fluids and recheck level in AM. Mild FRANCES present on admission most likely secondary to prerenal azotemia from poor oral intake. Start IV fluids and renally dose medications. Avoid nephrotoxic agents. Hold home antihypertensives as blood pressure is soft on admission. Start insulin sliding scale for diabetes mellitus type 2. Target blood sugar of 140-180 while hospitalized. Continue home divalproex and olanzapine. Continue home levothyroxine for history of hypothyroidism. Repeat hematology and chemistry panel in AM. Continue neurochecks. Dr. Arevalo
[2024-04-15 14:06] LABS: Lithium 1.55 mEq/L (1.00-1.20)
--- NOTE | 2024-04-15 14:08 | PC.CC ---
Hope MAYES attempted to complete initial assessment with patient; however, patient was unable to engage in assessment as he presented altered and only alter and oriented to self. It was reported that patient is from [facility].
[2024-04-15] MEDS: ATORVASTATIN CALCIUM 20 MG TABLET PO (20:10)
[2024-04-15] MEDS: OLANZapine 5 MG TABLET 15 MG PO (20:10)
[2024-04-15] MEDS: HEPARIN SOD INJ 5000 UNIT/ML VIAL SC (20:12)
--- NOTE | 2024-04-15 23:09 | PD.VPROG1 ---
Telemedicine visit statement This visit was conducted with the use of phone was obtained on 04/15/24 at 2309. Documentation for date of: 04/15/24 Subjective Subjective Interval history: patient is in MedSurg, no new symptoms reported. Tremors somewhat better. Got admitted with altered mental status, which got resolved. Patient is able to feed himself and is back to baseline Virtual exam Vital Signs Temp Pulse Resp BP Pulse Ox O2 Del Method FiO2 97.7 F 67 18 122/69 97 Room Air 99 04/15/24 20:00 04/15/24 20:00 04/15/24 20:00 04/15/24 20:00 04/15/24 20:00 04/15/24 20:00 04/15/24 12:21 Objective Labs 04/14/24 17:48 04/14/24 17:48 Labs: Laboratory Results - last 24 hr 04/15/24 04/15/24 04/15/24 02:25 03:08 04:43 Ammonia < 10 L Ur Collection Type Catheter Urine Color Lt-Yellow Urine Clarity Clear Urine pH 7.0 Ur Specific [place] 1.013 Urine Protein Negative Urine Glucose (UA) 4+ A Urine Ketones Negative Urine Blood Negative Urine Nitrite Negative Urine Bilirubin Negative Urine Urobilinogen (Auto) Negative Ur Leukocyte Esterase Negative Urine RBC 4 H Urine WBC 4 Ur Squamous Epith Cells < 1 Urine Bacteria None [place] 1.53 H 04/15/24 12:50 Ammonia Ur Collection Type Urine Color Urine Clarity Urine pH Ur Specific [place] Urine Protein Urine Glucose (UA) Urine Ketones Urine Blood Urine Nitrite Urine Bilirubin Urine Urobilinogen (Auto) Ur Leukocyte Esterase Urine RBC Urine WBC Ur Squamous Epith Cells Urine Bacteria [place] 1.55 H Assessment & Plan Assessment 1) Altered mental status: improving Secondary to lithium toxicity his mental status is improving close to baseline Continue with the Depakote and olanzapine with benztropine to compensate for EPS side effects (2) [place] toxicity: The lithium level continue to be high requiring admissions frequently causing more tremors and altered mental status. Consider discontinuing lithium upon discharge he has been on divalproex, loxapine and olanzapine for treating bipolar disorder. (3) Hypertension: Stable on lisinopril the propranolol for dual benefits to control the tremors and blood pressure (4) Type 2 diabetes mellitus: Continue to check fingerstick glucose and follow sliding scale insulin per protocol
[2024-04-16] VITALS: BP 128/72; PULSE 61; RESP 17; TEMP 36.8; O2SAT 98
[2024-04-16 04:00] VITALS: BP 139/70; PULSE 67; RESP 17; TEMP 36.4; O2SAT 99
[2024-04-16 05:10] LABS: Basophils % (Auto) 1 % (0-2.5); Eosinophils # (Auto) 0.2 Thou/mm3 (0.0-0.5); Eosinophils % (Auto) 3 % (0-10); Hematocrit 29.9 % (41.0-53.0); Hemoglobin 9.9 g/dL (13.5-16.0); Immature Granulocytes % (Auto) 1 % (0-0); Immature Granulocytes Auto 0.03 Thou/mm3 (0.00-0.00); Lymphocytes # (Auto) 1.3 Thou/mm3 (1.0-4.8); Lymphocytes % (Auto) 19 % (10-50); Mean Corpuscular HGB Conc 33.1 g/dl (31.0-37.0); Mean Corpuscular Hemoglobin 32.6 pg (25.0-35.0); Mean Corpuscular Volume 98 fL (80-100); Monocytes # (Auto) 0.5 Thou/mm3 (0.0-0.8); Monocytes % (Auto) 7 % (0-12); Neutrophils # (Auto) 4.5 Thou/mm3 (1.8-7.7); Neutrophils % (Auto) 69 % (37-80); Nucleated Red Blood Cell % 0 /100 WBC (0); Platelet Count 162 Thou/mm3 (140-440); RDW Standard Deviation 47.3 fL (35.1-43.9); Red Blood Count 3.04 Miln/mm3 (4.50-5.90); White Blood Count 6.5 Thou/mm3 (3.8-10.6)
[2024-04-16] MEDS: LEVOTHYROXINE SODIUM 25 MCG TABLET 50 MCG PO (05:14)
[2024-04-16] MEDS: SODIUM CHLORIDE 0.9% 1000 ML 1,000 ML 70 ML IV (05:14)
[2024-04-16 05:22] LABS: Glucose Estimated Average 97 mg/dL (80-131)
[2024-04-16 05:36] LABS: Lithium 1.23 mEq/L (1.00-1.20)
[2024-04-16 05:48] LABS: Alanine Aminotransferase 8 U/L (10-49); Albumin, Serum 3.9 gm/dL (3.4-4.8); Albumin/Globulin Ratio 1.5 (1.2-2.2); Alkaline Phosphatase 97 U/L (46-116); Anion Gap 6 (7-16); Aspartate Amino Transferase 10 U/L (0-34); BUN/Creatinine Ratio 13 Ratio (12-20); Bilirubin,Total 0.4 mg/dL (0.3-1.2); Blood Urea Nitrogen 13 mg/dL (9-23); Calcium 9.4 mg/dL (8.3-10.6); Calcium (Corrected) 9.5 mg/dL (8.5-10.1); Carbon Dioxide 23.5 mMol/L (20.0-31.0); Chloride 107 mMol/L (98-107); Estimated Creatinine Clearance 69.1 mL/min (>60); Globulin 2.6 gm/dL (2.3-3.5); Glucose 82 mg/dL (74-106); Magnesium 1.8 mg/dL (1.6-2.6); Osmolality,Calculated 271 (275-295); Phosphorous 3.4 mg/dL (2.4-5.1); Sodium 136 mMol/L (136-145); Thyroid Stimulating Hormone 9.29 uIU/mL (0.55-4.78); Total Protein 6.5 gm/dL (5.7-8.2); eGFR > 60 See Note
[2024-04-16 06:00] VITALS: BMI 25.4
[2024-04-16 06:38] LABS: Collection Type, Urine Clean Catch
[2024-04-16 07:44] LABS: Bilirubin,Urine Negative (Negative); Blood,Urine Negative (Negative); Color,Urine Lt-Yellow (Lt Yel-Yel); Glucose, Urine 4+ (Negative); Ketones,Urine Trace (Negative); Leukocyte Esterase,Urine Positive (Negative); Nitrite,Urine Negative (Negative); PH,Urine 6.5 (5.0-7.0); Protein,Urine Negative (Neg - Trace); RBC,Urine 1 /hpf (0-3); Specific Gravity,Urine 1.012 (1.001-1.035); Squamous Epithelial Cell,Urine 1 /hpf (0-5); Urobilinogen,Urine Negative mg/dL (0.0-1.0); WBC,Urine 33 /hpf (0-5)
[2024-04-16 07:49] LABS: Clarity,Urine Hazy (Clear/Hazy)
[2024-04-16 08:00] VITALS: BP 130/79; PULSE 63; PULSE 65; RESP 14; TEMP 36.5; O2SAT 100
[2024-04-16] MEDS: cefTRIAXone/D5w 1gm IV premix 50 ML IV (08:22)
[2024-04-16] MEDS: OLANZapine 5 MG TABLET 15 MG PO (08:23)
[2024-04-16] MEDS: PANTOPRAZOLE 40 MG TABLET PO (08:23)
[2024-04-16] MEDS: DIVALPROEX SOD ER 250 MG TABER (NON-FORMULARY) 500 MG PO (08:24)
[2024-04-16] MEDS: HEPARIN SOD INJ 5000 UNIT/ML VIAL SC (08:25)
[2024-04-16 09:03] VITALS: PULSE 60; RESP 18; RESP 99
[2024-04-16] MEDS: Magnesium Sulfate 2 GM Ivpb 2 GM/50 ML BAG IV (09:05)
[2024-04-16 10:30] LABS: Free T4 (Free Thyroxine) 0.94 ng/dL (0.89-1.76)
[2024-04-16 12:00] VITALS: BP 116/64; PULSE 60; PULSE 61; RESP 16; TEMP 37.1; O2SAT 97
--- NOTE | 2024-04-16 13:14 | ESDS_ITS ---
Planned Discharge Date 04/16/24 DS: Providers Provider Date of admission: 04/15/24 12:21 Primary care physician: Physician No Primary/Family Admitting Provider: Moustapha Arevalo MD Attending Provider on Admission: Moustapha Arevalo MD Consults: 04/15/24 12:27 Consult to Neurology / Tele-Neurology Stat Comment: Consulting Provider: Danny Simpson 04/15/24 12:29 Referral Physical Therapy Routine Comment: Physician Instructions: Attending Provider on DC: Eileen Vines MD Discharging Provider: Eileen Vines MD DS: Diagnosis Problem List Completed Was Problem List Reviewed/Reconciled?: Yes Hospital Course Hospital Course Hospital course: Summary: Patient is a 63-year-old male with a past medical history of diabetes mellitus type 2 on metformin and Jardiance, hypertension, history of bipolar disorder, schizoaffective disorder, mild cognitive disorder and hypothyroidism who was addmitted for acute metabolic encephalopathy secondary to lithium toxicity, FRANCES, mild hyponatremia, and later found to have a positive UA, indicating cystitis. ER Course: Patient's vital on arrival blood pressure was 111/66, heart rate 64, respiratory rate of 18, saturating well on room air. CBC showed normal white blood count, normocytic anemia with a steady decline since November 2023. Mild hyponatremia 134, elevated potassium 5.4 bicarb within normal range. Osmolarity 271 mild FRANCES increase of creatinine from 0.8-1.2. BUN/creatinine ratio at 19. Glucose within normal limits. Ammonia levels within normal limits. [place] levels at 1.55. UA negative. Patient was given 2 L bolus in the ER.CT head remains unchanged since previous admissions, no acute hemorrhage or mass effect or midline shift. EKG on admission sinus bradycardia. Hospital Course: Patient's lithium levels remained elevated with morning read of 1.23 (H). Neurology consulted, given second admission to the hospital presenting with acute encephalopathy likely secondary to lithium toxicity, recommended the patient stop lithium until follow-up with psychiatrist. Patient also tested positive for urinary tract infection as noted in the UA and started on antibiotics. Urinary tract infection likely also contributed to acute metabolic encephalopathy. Patient will be going home with antibiotics to complete a 5-day course with ciprofloxacin. Patient's Jardiance was DC'd given elevated glucose levels in the UA and urinary tract infection. Additionally, patient's fasting glucose and mealtime readings have been under 140 with an A1c of 5% thus Jardiance and metformin will be stopped. Follow-up with primary care provider if you need to restart medication. Currently stopping lisinopril given episodes of hypotension as reported by SNF. Blood pressure has been within normal limits on this admission. Please follow-up with primary care provider. Please follow- up with primary care provider for a colonoscopy given your recent weight changes, as reported by SNF. Weight changes can also be secondary to polypharmacy from Jardiance and metformin as patient's A1c is 5.0, nonetheless please follow-up with screening guidelines for colon cancer. Instructions: -Please continue Ciprofloxacin 500 mg oral twice a day for 5 more days for urinary tract infection -Hold lithium, given second hospitalization with lithium toxicity. Please follow-up with psychiatrist to determine regimen for lithium. -Please continue your benzatropine, Divalproex, and olanzapine as prescribed, no changes made -Please continue propranolol for tremors as prescribed -Please stop Lisinopril given episodes of low blood pressure -Please stop Metformin and Jardiance for diabetes mellitus as blood glucose reading have been in 80s in the hospital and A1c of 5.0. -Please follow up with a colonoscopy as outpatient as screening test -Please follow up with your primary care provider within one week of discharge and psychiatrist -If your symptoms worsen,please seek immediate medical attention and return to your nearest emergency room -If you do not have a primary care provider, you may follow up at the [facility] at [address] [place] [address] [address], [place] [address], Disposition: SNF #Acute Metabolic Encephalopathy, secondary to [place] Toxicity, resolved #Complicated Cystitis #FRANCES, improved #FRANCES, Mild Hyponatremia Hypovelmic, improved #Failure to Thrive #Hypertension #Hypotension, resolved #Dibetes Mellitus Type 2 non-insulin dependent #Bipolar Disorder #Schizoaffectve Disorder #Mild Cognitive Disorder #Hyperlipidemia #Hypothyroidism - The patient's plan was discussed with attending Dr. Arevalo and senior residents Dr. Shalini Vines MD PGY1 Internal Medicine Time Spent with Patient Time attestation: Total time spent providing and/or coordinating discharge services: at least 35 minutes of care and coordination Exam Vital Signs Temp Pulse Resp BP Pulse Ox O2 Del Method FiO2 98.7 F 61 16 116/64 97 Room Air 99 04/16/24 12:00 04/16/24 12:00 04/16/24 12:00 04/16/24 12:00 04/16/24 12:00 04/16/24 12:00 04/15/24 12:21 Narrative Exam General Appearance: Alert & Oriented X2, well-nourished male who is lying in bed in no acute distress HEENT: Skull symmetrical and atraumatic. Conjunctivae pink and moist. Pupils equal, round, reactive to light and accommodation (PERRL). External ear without lesion or discharge. Straight, nares patient, mucosa pink, no discharge. Cardio: Normal Rate and Rhythm with S1 and S2 heart sounds. No murmurs or extra heart sounds auscultated. No bruits on carotid auscultation. No peripheral edema or cyanosis. Lungs: Symmetric with good expansion. Chest and back non-tender. Breath sounds vesicular without crackles, wheezing or rhonchi Abdomen: Non-tender, Non-distended, Normal Reactive Bowel Sounds Neuro: Yes Alert, Yes cooperative, Yes oriented to person, Yes place, and No time. Speech clear. CN grossly intact. Upper motor strength 5/5 and Lower motor strength 5/5. Sensation intact. Discharge Plan Plan Patient Disposition: Xfer Skilled Nsg Fac (SNF) Patient condition on transfer: Stable Care Plan Goals: Instructions: -Please continue Ciprofloxacin 500 mg oral twice a day for 5 more days for urinary tract infection -Hold lithium, given second hospitalization with lithium toxicity. Please follow-up with psychiatrist to determine regimen for lithium. -Please continue your benzatropine, Divalproex, and olanzapine as prescribed, no changes made -Please continue propranolol for tremors as prescribed -Please stop Lisinopril given episodes of low blood pressure -Please stop Metformin and Jardiance for diabetes mellitus as blood glucose reading have been in 80s in the hospital and A1c of 5.0. -Please follow up with a colonoscopy as outpatient as screening test -Please follow up with your primary care provider within one week of discharge and psychiatrist -If your symptoms worsen,please seek immediate medical attention and return to your nearest emergency room -If you do not have a primary care provider, you may follow up at the [facility] at [address], [place] [address], Disposition: SNF Instrucciones: -Contin?e con ciprofloxacina 500 mg por v?a oral dos veces al d?a ashlee 5 d?as m?s para la infecci?n del tracto urinario. -Retener litio, adis segunda hospitalizaci?n por toxicidad por litio. Yashira un seguimiento con un psiquiatra para determinar el r?gimen de litio. -Contin?e tomando benzatropina, divalproex y olanzapina seg?n lo prescrito, no se realizaron cambios. -Contin?e con propranolol para los temblores seg?n lo prescrito. -Por favor, suspenda Lisinopril dados episodios de presi?n arterial baja. -Por favor, deje de usar Metformina y Jardiance para la diabetes mellitus, ya que la lectura de glucosa en wiliam fernandez sido de 80 en el hospital y la A1c de 5,0. -Por favor yashira un seguimiento con yg colonoscopia laura prueba de detecci?n ambulatoria. -Yashira un seguimiento con eugene proveedor de atenci?n primaria dentro de yg semana despu?s del lynn y con eugene psiquiatra. -Si heriberto s?ntomas empeoran, busque atenci?n m?dica inmediata y regrese a la courtney de emergencias m?s cercana. -Si no tiene un proveedor de atenci?n primaria, puede realizar un seguimiento en el [facility] en [address], [place] [address], tel?fono Prescriptions/Referrals Prescriptions/Med Rec: New ciprofloxacin HCl [Cipro] 500 mg tablet 500 mg PO Q12H Qty: 10 0RF Continued divalproex 500 mg tablet extended release 24 hr 1,000 mg PO HS benztropine 1 mg tablet 1 mg PO BID Patient Comments: take 1 tablet by mouth twice a day atorvastatin 20 mg tablet 20 mg PO QDAY loxapine succinate 5 mg capsule 5 mg PO BID divalproex 500 mg tablet,delayed release (DR/EC) 500 mg PO QDAY propranolol 40 mg tablet 20 mg PO BID docusate sodium 250 mg Capsule 250 mg PO QDAY PRN (Reason: Constipation) olanzapine 15 mg tablet 1 tab PO BID levothyroxine [Synthroid] 50 mcg tablet 50 mcg PO QDAY Qty: 30 0RF Held lithium carbonate 300 mg Capsule 600 mg PO HS Hold Instructions: Resume on 04/22/24. Needs to follow up with psychiatrist to restart [place] due to repeat hospitalizations due to lithium toxicity. lisinopril 5 mg tablet 5 mg PO QDAY Hold Instructions: Resume on 04/22/24. Follow up PCP to restart this medicaton due to FRANCES. Jardiance 10 mg tablet 10 mg PO QDAY Hold Instructions: Resume on 04/22/24. Follow up with PCP to consider stopping due to complications and side effects from SGLT2i metformin 500 mg tablet 2 tab PO BID Hold Instructions: Resume on 04/22/24. Follow up with PCP for further titration due to normal levels of glucose. Referrals: No Primary/Family,Physician [Primary Care Provider] - Patient/Caregiver Discharge Instructions Discharge Activity: activity as tolerated Education Materials: Using Antidepressants Print Language: Italian Stand Alone Forms: Cyndy Award Info., Patient Portal Info Letter Discharge Order Discharge Orders: Discharge (Routine); Ordered 04/16/24 Ordered By: Alex Loya Quality Discharge Quality Measures VTE prophylaxis Attestestation MD Attestation I have examined the patient, reviewed labs and imaging findings, discussed the case with the resident(s), and reviewed entered orders. I agree with the plan of care as outlined in this note. Dr. Arevalo
== END 2024-04-16 14:55 | disposition skilled nursing facility (03) | DRG 52 ==
LOC: SERX 04-15 12:17 → SERHOLD 04-15 12:36 → S3SX 04-15 15:40
PROVIDERS: Emergency Medicine; Student in an Organized Health Care Education/Training Program; Admitting Provider Student in an Organized Health Care Education/Training Program; Emergency Provider Emergency Medicine; Referring Provider Emergency Medicine; Visit Provider Student in an Organized Health Care Education/Training Program
DX: G92.8 Other toxic encephalopathy (principal); F03.90 Unspecified dementia, unspecified severity, without behavioral disturbance, psychotic disturbance, mood disturbance, and anxiety; E11.9 Type 2 diabetes mellitus without complications; I10 Essential (primary) hypertension; E03.9 Hypothyroidism, unspecified; F25.9 Schizoaffective disorder, unspecified; F31.9 Bipolar disorder, unspecified; T43.595A Adverse effect of other antipsychotics and neuroleptics, initial encounter; N30.90 Cystitis, unspecified without hematuria; E87.1 Hypo-osmolality and hyponatremia; E78.5 Hyperlipidemia, unspecified; R62.7 Adult failure to thrive
CPT/HCPCS: 36415; 70450; 71045; 80053; 80178; 81001; 82140; 83036; 83735; 84100; 84439; 84443; 85025; 87081; 87086; 93225; J0696; J1643; J3475; J7030; A9270